=== PATIENT | male | born 1935 | race Caucasian/White ===

== ENCOUNTER → 2017-07-31 | Outpatient (CLI) | payer OTHER, MEDICAID | LOC: BHFA 11:00 | PROVIDERS: ATTEND Internal Medicine Cardiovascular Disease | DX: R06.02 Shortness of breath (principal); R60.9 Edema, unspecified; I48.91 Unspecified atrial fibrillation; I50.32 Chronic diastolic (congestive) heart failure ==

== ENCOUNTER 2017-08-05 09:46 | Day surgery (SDC) | payer OTHER, MEDICAID ==
[~2017-08-05 09:46] MED LIST: ATROPINE SULFATE 1 MG/10 ML SYR IVP ONE; NS 1,000 ML IV ONE
--- NOTE | 2017-08-05 10:09 | CPEKG ---
Heart Rate: 72 RR Interval: 833 QRSD Interval: 96 QT Interval: 420 QTC Interval: 460 QRS [place]: -50 T Wave [place]: 17 EKG Severity - ABNORMAL ECG - EKG Impression: ATRIAL FIBRILLATION EKG Impression: INFERIOR INFARCT, AGE INDETERMINATE EKG Impression: ANTERIOR INFARCT, OLD Electronically Signed By: Martha Grossman 06-Aug-2017 08:42:34
[2017-08-05] MEDS ORDERED: ATROPINE SULFATE 1 MG/10 ML SYR ONE (10:40)
--- NOTE | 2017-08-05 10:43 | PDANEPAE ---
ANE History of Present Illness A fib KAUR CV ANE Past Medical History - Cardiovascular History Hx Hypertension: Yes Hx Arrhythmias: Yes Hx Chest Pain: No - Pulmonary History Hx COPD: No Hx Asthma/Reactive Airway Disease: No Hx Recent Upper Respiratory Infection: No Hx Oxygen in Use at Home: No Hx Sleep Apnea: No ANE Review of Systems Review of Systems: - Exercise capacity METS (RN): 2 METS ANE Patient History - Allergies Allergies/Adverse Reactions: No Known Allergies Allergy (Verified 07/31/17 12:03) - Home Medications Home Medications: Albendazole 08/05/17 [Last Taken Unknown] Aspirin 08/05/17 [Last Taken Unknown] Atenolol 08/05/17 [Last Taken Unknown] Cozaar 08/05/17 [Last Taken Unknown] Eliquis 08/05/17 [Last Taken Unknown] Lantus Solostar 08/05/17 [Last Taken Unknown] Lovastatin 08/05/17 [Last Taken Unknown] Norvasc 10 mg (*) 08/05/17 [Last Taken Unknown] - NPO status NPO Status: no food or drink >8 hours - Anes Hx Anes Hx: no prior problems - Smoking Hx Smoking Status: Never smoked - Alcohol Use Alcohol Use: None - Family Anes Hx Family Anes Hx: none ANE Labs/Vital Signs - Labs Result Diagrams: 08/05/17 10:21 - Vital Signs Height: 174 cm Weight: 83 kg ANE Physical Exam - Airway Neck exam: decreased ROM Mallampati Score: Class 1 Mouth exam: normal dental/mouth exam - Pulmonary Pulmonary: no respiratory distress, no rales or rhonchi - Cardiovascular Cardiovascular: irregularly irregular ANE Anesthesia Plan Anesthesia Plan: GA with mask Total IV Anesthesia: Yes
[2017-08-05] MEDS ORDERED: PROPOFOL 200 MG/20 ML VIAL ONE (10:44)
[2017-08-05 10:45] LABS: INR 1.12 (0.83-1.16); PROTIME(PATIENT) 14.6 SEC (12.0-15.0)
--- NOTE | 2017-08-05 11:18 | PDHPUP ---
History & Physical Update H&P update statement: This history and physical update is based on an assessment of the patient which was completed after admission or registration (within 24 hours), but prior to the surgery/procedure. H&P update: H&P reviewed & patient examined, no change in patient's condition since H&P completed
[2017-08-05] MEDS ORDERED: APIXABAN 5 MG TAB ONE (11:21)
[2017-08-05] MEDS ORDERED: APIXABAN 5 MG TAB PO ONE (11:30)
--- NOTE | 2017-08-05 11:30 | PDTEE1 ---
KAUR Cardioversion Procedure Procedure: electrical cardioversion Indications: atrial fibrillation Consent: signed and in chart Anticoagulation: eliquis Procedural Details: Pads were placed in anterior-posterior position. KAUR probe was advanced and standard images obtained. There is no evidence of left atrial or left atrial appendage thrombus. Synchronized cardioversion attempt #1: 200J Results: normal sinus rhythm Conclusions: successful KAUR cardioversion
--- NOTE | 2017-08-05 11:56 | POSTANESTH ---
Post Anesthetic Evaluation Cardiovascular Status: Similar to Pre-Op Cond Respiratory Status: Similar to Pre-op Cond. Level of Consciousness/Mental Status: Can Participate in Eval Pain Control: Adequate, Prn Tx Ordered Nausea/Vomiting Control: Adequate, Prn Tx Ordered Complications Possibly Related to Anesthesia: None Noted (Awake SR)
--- NOTE | 2017-08-05 12:04 | CPEKG ---
Heart Rate: 60 RR Interval: 1000 P-R Interval: 232 QRSD Interval: 94 QT Interval: 464 QTC Interval: 464 P [place]: 24 QRS [place]: -51 T Wave [place]: 37 EKG Severity - ABNORMAL ECG - EKG Impression: SINUS RHYTHM EKG Impression: FIRST DEGREE AV BLOCK EKG Impression: INFERIOR INFARCT, AGE INDETERMINATE EKG Impression: ANTERIOR INFARCT, AGE INDETERMINATE EKG Impression: COMPARED WITH 08/05/2017 AT 10:07 A.M. SINUS RHYTHM HAS BEEN RESTORED Electronically Signed By: Martha Grossman 06-Aug-2017 08:42:29
--- NOTE | 2017-08-05 16:26 | ECHO ---
[email or web address] [address] [address] Main: [phone] Fax: Transesophageal Echocardiography Name: TRINITY SANTIAGO MR#: [id number] Study Date: 08/05/2017 Study Time: 11:01 AM Date of : 1935 Age: 81 year(s) Height: ( ) Weight: ( ) BSA: Gender: Male Examination: KAUR Indication: Pre Cardioversion Image Quality: Contrast: Requested by: Ricardo Villegas Heart Rate: Rhythm: Atrial fibrillation BP: / Procedure Staff Professional Athletes Coach: Rashid Melgar RDCS Reading Physician: Ricardo Villegas MD Requesting Provider: KAUR Exam Details Conclusions: The patient was in atrial fibrillation at the time the study. Normal left ventricular size and systolic function. LVEF estimated at 60-65%. Normal left ventricular wall motion. Moderate to severe left atrial enlargement. No evidence of left atrial appendage thrombus. Following the procedure the patient underwent cardioversion successfully restoring sinus rhythm. Measurements: Chambers Valvular Assessment AV/MV Valvular Assessment TV/PV Normal Normal Normal Name Value Range Name Value Range Name Value Range Additional Measurements: Findings: Left Ventricle: Normal global systolic LV function. Left Atrial Appendage: Good color flow doppler in the left atrial appendage. No thrombus in left appendage. Exam Comments: Proceeded with successful elective DC cardioversion.. l1n Patient: TRINITY SANTIAGO Study Date: 08/05/2017 Page 1 of 2 11:01 AM (No Signature Object) Patient: TRINITY SANTIAGO Study Date: 08/05/2017 Page 2 of 2 11:01 AM [id number]
== END 2017-08-05 14:00 | disposition home or self-care (01) ==
LOC: FCATH 09:46
PROVIDERS: ATTEND Internal Medicine Cardiovascular Disease
PROC: 5A2204Z Restoration of Cardiac Rhythm, Single (ICD-10-PCS; principal; 2017-08-05)
PROC: B245ZZ4 Ultrasonography of Left Heart, Transesophageal (ICD-10-PCS; principal; 2017-08-05)
DX: I48.91 Unspecified atrial fibrillation (principal); I50.32 Chronic diastolic (congestive) heart failure
CPT/HCPCS: J0461; J2704

== ENCOUNTER → 2017-08-20 | Outpatient (CLI) | payer OTHER, MEDICAID | LOC: BHFA 13:30 | PROVIDERS: ATTEND Internal Medicine Cardiovascular Disease | DX: I48.91 Unspecified atrial fibrillation (principal); R94.31 Abnormal electrocardiogram [ECG] [EKG]; I50.31 Acute diastolic (congestive) heart failure; R06.02 Shortness of breath; N18.9 Chronic kidney disease, unspecified ==

== ENCOUNTER → 2017-09-28 | Outpatient (CLI) | payer OTHER, MEDICAID | LOC: BHFA 13:30 | PROVIDERS: ATTEND Internal Medicine Cardiovascular Disease | DX: I48.91 Unspecified atrial fibrillation (principal); I50.9 Heart failure, unspecified | CPT/HCPCS: 78452; 93017; A9500; J2785 ==

== ENCOUNTER 2018-02-03 08:44 | Inpatient (IN) | payer OTHER, MEDICAID ==
[2018-02-03] MEDS ORDERED: DIAZEPAM 5 MG TAB PO ONE (08:47)
[2018-02-03] MEDS ORDERED: diphenhydrAMINE 25 MG CAP PO ONE (08:47)
[2018-02-03] MEDS ORDERED: ASPIRIN EC 325 MG TAB PO ONE (08:47)
[2018-02-03] MEDS ORDERED: NS 1,000 ML IV ONE (08:47)
[2018-02-03] MEDS ORDERED: FAMOTIDINE 20 MG TAB PO ONE (08:47)
[2018-02-03 09:30] LABS: PLATELET COUNT 185 10^3/uL (150-400)
[2018-02-03 09:38] LABS: INR 1.03 (0.83-1.16); PROTIME(PATIENT) 13.7 SEC (12.0-15.0)
--- NOTE | 2018-02-03 10:16 | PDPROPOC ---
Sedation Plan of Care Sedation Plan of Care: mental status noted, patient educated of risks, benefits , alternatives, patient can tolerate sedation ASA Classification: ASA 2 Planned drugs: fentanyl, midazolam Mallampati Score: Class 2 Mallampati Reference Image: Patient passed 3-3-2 rule?: Yes
--- NOTE | 2018-02-03 10:16 | PDHPUP ---
History & Physical Update H&P update statement: This history and physical update is based on an assessment of the patient which was completed after admission or registration (within 24 hours), but prior to the surgery/procedure.82 year old with abnormal nuclear stress test with large anterior septal defect and septal wall HK with EF of 47% with hx of PAF, HTN and DM. Now with episodes of substernal bandlike chest tightness at rest. Discussed with pt his underlying CRI with Cr between 2.6 -2.9 over the last year. Currently 2.8. Plan for IV Hydration with one liter prior to LHC and continuos IV Saline through chikis operative period. Will plan to limit contrast and No LV gram. Discussed potential for kidney damage with contrast. H&P update: H&P reviewed & patient examined, no change in patient's condition since H&P completed
[2018-02-03] MEDS ORDERED: MIDAZOLAM 2 MG/2 ML VIAL ONE (10:45)
[2018-02-03] MEDS ORDERED: LIDOCAINE 1% 300 MG/30 ML SDV ONE (10:45)
[2018-02-03] MEDS ORDERED: fentaNYL 100 MCG/2 ML INJ ONE (10:45)
[2018-02-03] MEDS ORDERED: IOPAMIDOL (ISOVUE-370) 150 ML BTL IV ONE (10:46)
[2018-02-03] MEDS ORDERED: ONDANSETRON 4 MG/2 ML VIAL IVP PRN (12:00)
[2018-02-03] MEDS ORDERED: OXYCODONE/APAP 5/325 TAB PO PRN (12:00)
[2018-02-03] MEDS ORDERED: ATROPINE SULFATE 1 MG/10 ML SYR IVP PRN (12:00)
[2018-02-03] MEDS ORDERED: HYDROCODONE/APAP 5/325 TAB PO PRN (12:00)
[2018-02-03] MEDS ORDERED: NITROGLYCERIN 0.4 MG BTL SL PRN (12:00)
[2018-02-03] MEDS ORDERED: NS 1,000 ML IV SCH ×3 (12:15→17:00)
--- NOTE | 2018-02-03 13:08 | CPIP ---
DATE OF PROCEDURE: 02/03/2018 PROCEDURE PERFORMED: Diagnostic left heart catheterization. INDICATION FOR PROCEDURE: Patient is an 82-year-old gentleman with multiple coronary artery disease risk factors, including hypertension, hyperlipidemia, and diabetes who had presented this summer with complaints of exertional shortness of breath. He underwent an exercise nuclear stress test demonstr ating a large area of anterior, anterior septal ischemia. He also has a known history of chronic oscar al insufficiency with creatinine over the last 12 months between 2.6 and 2.9. At his followup visit, he was asymptomatic. At that point, the decision was made to pursue optimal medical management. He had returned to my office last week with new onset of symptoms consistent with unstable angina with 4/10 bandlike substernal chest tightness lasting several minutes and resolving spontaneously. In the setting of symptoms of unstable angina, multiple risk factors, and abnormal nuclear stress sixto dy with anterior septal ischemia and anterior septal hypokinesis with EF of 47%, the decision was mad e to pursue diagnostic left heart catheterization. Of note, creatinine today was 2.8. He was hydrated with a L of fluid prior to the start of heart cat heterization. IV fluids were continuously flowing throughout the course of procedure. No left ventr iculogram was performed, attempts were made to minimize contrast. He received a total of 35 cc throu gh the course of the case. PROCEDURE: After informed consents were obtained for left heart catheterization, the patient was bro ught to the cardiac catheterization lab where he was prepped and draped in a sterile fashion. Using 1% lidocaine, the right groin was anesthetized. Using the modified Seldinger technique, 6-Vietnamese cat heter was placed into the right common femoral artery without complications. A JL4 catheter was used to take images of the left coronary anatomy in multiple projections. JL4 catheter was exchanged ove r a guidewire for a JR4 catheter. JR4 catheter was used to take images of the right coronary artery. JR4 catheter was removed over guidewire without complications. No left ventriculogram or right com mon femoral artery angiography were obtained to limit contrast exposure. FINDINGS: 1. Left main normal size and caliber, bifurcates into left anterior descending and left circumflex c oronary artery. There is no evidence of coronary disease within the left main. 2. Left anterior descending: LAD is occluded at the level of the first diagonal branch. There is a small 1st diagonal branch with moderate diffuse disease and a large 1st septal branch with mild diff use disease. There is evidence of left to right and right to left collaterals primarily from the obt use marginal branch of the circumflex. 3. The circumflex vessel gives rise to a moderate to large size first and second obtuse marginal bra nches. There is 90% proximal stenosis in the first obtuse marginal branch, an 80% to 90% proximal st enosis in the second obtuse marginal branch. There is a proximal 70% stenosis in the mid circumflex vessel with mild luminal irregularities to the distal circumflex vessel. 4. The right coronary artery is a large caliber dominant vessel that bifurcates into PDA and PLV bra nch. There is evidence of ostial stenosis of the RCA. There is also 80% to 90% proximal stenosis, a nd an 80% mid napkin ring stenosis identified. CONCLUSION: 1. Severe 3-vessel coronary artery disease. 2. New onset of symptoms consistent with unstable angina despite well controlled blood pressure and lipids. 3. Chronic renal insufficiency with baseline creatinine between 2.6 and 2.9. 4. Diabetes. PLAN: I reviewed images with my interventional colleague, Dr. Braden. I feel that patient would be best served in the setting of multiple risk factors, including diabetes in the setting of 3-vessel co ronary disease with coronary artery bypass graft surgery. No attempted intervention was made today. A 6-Vietnamese sheath with was pulled without complications. At the time of this dictation, manual hemo stasis is being applied without complication. /[id number]/MODL
--- NOTE | 2018-02-03 16:37 | CPEKG ---
Test Reason : OPEN Blood Pressure : / mmHG Vent. Rate : 065 BPM Atrial Rate : 065 BPM P-R Int : 194 ms QRS Dur : 104 ms QT Int : 445 ms P-R-T Axes : 046 -54 022 degrees QTc Int : 463 ms Sinus rhythm Inferior infarct, old Anterior infarct, old Confirmed by Gino Chou ([id number]) on 02/03/2018 4:37:31 PM Referred By: Confirmed By:Gino Chou
[2018-02-03] MEDS ORDERED: LORazepam 2 MG/ML INJ IVP PRN (16:38)
[2018-02-03] MEDS ORDERED: ATORVASTATIN CALCIUM 40 MG TAB PO SCH ×2 (17:00→21:00)
[2018-02-03] MEDS ORDERED: amLODIPine BESYLATE 5 MG TAB ONE (17:07)
[2018-02-03] MEDS ORDERED: DICLOFENAC SODIUM 1% 100 GM GEL TP PRN (17:22)
[2018-02-03] MEDS: FUROSEMIDE 40 MG TAB PO SCH (18:31)
[2018-02-03] MEDS: LISINOPRIL 10 MG TAB PO SCH (18:32)
[2018-02-03] MEDS: METOPROLOL TARTRATE 100 MG TAB PO SCH (20:45)
[2018-02-03] MEDS: SENNOSIDES/DOCUSATE SODIUM TAB PO SCH (20:45)
[2018-02-03] MEDS ORDERED: TAMSULOSIN HCL 0.4 MG CAP PO SCH (21:00)
[2018-02-03] MEDS ORDERED: METOPROLOL TARTRATE 100 MG TAB PO SCH (21:00)
[2018-02-03] MEDS ORDERED: CHLORHEXIDINE GLUC HIBICLENS 118 ML BTL TP SCH (21:00)
[2018-02-03] MEDS: MUPIROCIN 2% 22 GM OINT NS SCH (23:59)
[2018-02-04 04:47] LABS: PLATELET COUNT 164 10^3/uL (150-400)
--- NOTE | 2018-02-04 04:58 | GCON ---
DATE OF CONSULTATION: 02/03/2018 REFERRING PHYSICIAN: Dr. Marshall The patient is seen at the request of Dr. Marshall with the patient's permission. IMPRESSION: 1. Unstable angina pectoris with severe 3-vessel coronary artery disease. 2. Chronic renal failure with baseline creatinine of 2.8. 3. Type 2 diabetes, on insulin. 4. Hypertension. 5. Class I congestive heart failure, diastolic. RECOMMENDATIONS: This gentleman should remain in-house and undergo coronary artery revascularization due to his unstable coronary status. Given his baseline creatinine, he did have a limited catheteri zation today with 35 cc of dye. We will check a baseline creatinine in the morning, and if stable, w e will proceed as 2nd case tomorrow. Because he is paroxysmal in atrial fibrillation, we would vlad lly do a Chen-Maze IV; however, given his renal status, I want to avoid a longer pump run and will min imize it to just a PVI and left atrial appendage management. Risks and complications including renal failure, bleeding, infection, and were reviewed with the patient, his [id number], and his son by phone. The patient is agreeable and wishes to proceed. CHIEF COMPLAINT: This 82-year-old gentleman had been evaluated for worsening dyspnea with outpatient nuclear studies which revealed significant anterior wall ischemia. On revisit, he was complaining o f crescendo angina awakening him at night and coming on without provocation. He underwent diagnostic left heart cath today, showed severe 3-vessel disease. MEDICAL HISTORY: As stated. MEDICATIONS: He was on amlodipine, atorvastatin, Eliquis which has been held 3 days prior to cath, L antus, Lasix, lisinopril, and metoprolol. ALLERGIES: Denied. SOCIAL HISTORY: Never drank. Never smoked. He is retired, lives with his and is fully indepen dent. REVIEW OF SYSTEMS: Except for Chief Complaint, unremarkable. PHYSICAL EXAMINATION: GENERAL: This is an elderly gentleman, lying supine in bed, in no apparent di stress. VITAL SIGNS: Blood pressure is 156/92, pulse 85, respirations 14, nonlabored. HEENT: Norm ocephalic. PERRLA. EOMI. NECK: Without bruit, adenopathy, or thyromegaly. HEART: Rate is regula r without murmur, S3, or S4. LUNGS: Clear. ABDOMEN: Soft, nontender. Bowel sounds are active. R ECTAL AND GENITAL: Deferred. NEUROLOGICAL: Grossly intact. /[id number]/MODL
[2018-02-04] MEDS ORDERED: MANNITOL 25% 12.5 GM/50 ML VIAL IVP ONE (08:00)
[2018-02-04] MEDS ORDERED: CITRATE DEXTROSE SOLN 500 ML BAG MISC ONE (08:00)
[2018-02-04] MEDS ORDERED: INSULIN REGULAR HUMAN 100 UNIT in NS 100 ML IV ONE (08:00)
[2018-02-04] MEDS ORDERED: PHENYLEPHRINE HCL 50 MG in NS 250 ML IV ONE (08:00)
[2018-02-04] MEDS ORDERED: NOREPINEPHRINE BITARTRATE 16 MG in NS 250 ML IV ONE (08:00)
[2018-02-04] MEDS ORDERED: VERAPAMIL 5 MG, NITROGLYCERIN 2.5 MG, HEPARIN 500 UNIT, SODIUM BICARBONATE 0.2 MEQ in L... MISC ONE (08:00)
[2018-02-04] MEDS ORDERED: AMINOCAPROIC ACID 5 GM/20 ML VIAL IV ONE (08:00)
[2018-02-04] MEDS ORDERED: ceFAZolin 2 GM/DEXTROSE 100 ML IV ONE (08:00)
[2018-02-04] MEDS ORDERED: CARDIOPLEGIC SOLUTION 1,052.8 ML PF ONE (08:00)
[2018-02-04] MEDS: MUPIROCIN 2% 22 GM OINT NS SCH ×2 (08:20→21:29)
[2018-02-04] MEDS ORDERED: D50W 25 GM/50 ML SYR IVP PRN (08:44)
--- NOTE | 2018-02-04 08:49 | PDHOSCONS ---
History and Physical - Chief Complaint management of diabetes - History of Present Illness 82yo M with a history of type 2 diabetes, HTN, HLD, CKD (baseline Cr 2.6-2.9), atrial fibrillation on AC who came in for coronary angiography after developing unstable angina. Had symptoms consistent with stable angina over the summer. Stress test at that time abnormal for large area or reversible ischemia but decided to manage medically. Then developed symptoms consistent with unstable angina prompting the catheterization which showed severe 3 vessel disease. Given his diabetic history, decision was made to pursue coronary bypass surgery. The medicine team has been consulted for chikis-operative management of his diabetes. I saw the patient in the post-operative period. He is still sedated and on the ventilator and unable to provide any additional history re: his diabetes. History Information - Allergies/Home Medication List Allergies/Adverse Reactions: No Known Allergies Allergy (Verified 07/31/17 12:03) Home Medications: Apixaban [Eliquis] 2.5 mg PO BID 01/28/18 [Last Taken 01/31/18 22:00] Atorvastatin Calcium [Lipitor 40 mg (*)] 40 mg PO HS 01/28/18 [Last Taken 18:00] Furosemide [Lasix 20 MG (*)] 60 mg PO DAILY 01/28/18 [Last Taken 01/31/18 12:00] Insulin Glargine [Lantus] 15 unit SC DAILY 01/28/18 [Last Taken 02/02/18 10:00] Lisinopril [Zestril 10 mg (*)] 10 mg PO DAILY 01/28/18 [Last Taken 02/02/18 18: 00] Metoprolol Tartrate [Lopressor 100 mg (*)] 100 mg PO BID 01/28/18 [Last Taken 18:00] amLODIPine BESYLATE [Norvasc 10 mg (*)] 10 mg PO DAILY 01/28/18 [Last Taken 06/17 18:00] Tamsulosin HCl [Flomax 0.4 MG (*)] 0.4 mg PO DAILY 01/29/18 [Last Taken 18:00] Diclofenac Sodium 1% [Voltaren Gel (*)] 2 gm TP QID PRN 02/03/18 [Last Taken 06/17 11:00] I have personally reviewed and updated: family history, medical history, social history, surgical history - Past Medical History Additional medical history: Type 2 diabetes, HTN, HLD, CKD stage 3-4, atrial fibrillation, chronic diastolic CHF, 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 (tx'd with albendazole in 2012) - Surgical History Reports: no pertinent surgical hx Additional surgical history: no prior sternotomy - Family History Positive for: non-pertinent Additional family history: no known CAD - Social History Smoking Status: Never smoked Alcohol Use: None Drug Use: None Additional social history: Retired, lives with , fully independent Review of Systems Review of Systems: ROS: 10pt was reviewed & negative except for what was stated in HPI & below Physical Exam Physical Exam: Temp Pulse Resp BP Pulse Ox 36.7 C 68 16 158/80 H 94 02/04/18 08:00 02/04/18 08:00 02/04/18 08:00 02/04/18 08:00 02/04/18 08:00 Constitutional: appears nourished, other (sedated ) Eyes: anicteric sclera, other (pinpoint pupils) Ears, Nose, Mouth, Throat: other (ET tube in place) Cardiovascular: regular rate and rhythym, no murmur, rub, or gallop, other ( sternal incision c/d/i), No edema Respiratory: other (mechanical breath sounds, clear) Gastrointestinal: normoactive bowel sounds, soft, non-tender abdomen, no palpable masses Genitourinary: garner in urethra Skin: warm, normal color, no rashes or abrasions, no fluctuance, no induration, No mottled Musculoskeletal: full muscle strength, no muscle tenderness, normal joint ROM, no joint effusions Neurologic: other (sedated) Lab Data & Imaging Review 02/04/18 03:38 02/04/18 03:38 WBC 10.67 10^3/uL (3.80-9.50) H 02/04/18 03:38 RBC 4.38 10^6/uL (4.40-6.38) L 02/04/18 03:38 Hgb 12.5 g/dL (13.7-17.5) L 02/04/18 03:38 Hct 37.8 % (40.0-51.0) L 02/04/18 03:38 MCV 86.3 fL (81.5-99.8) 02/04/18 03:38 MCH 28.5 pg (27.9-34.1) 02/04/18 03:38 MCHC 33.1 g/dL (32.4-36.7) 02/04/18 03:38 RDW 12.9 % (11.5-15.2) 02/04/18 03:38 Plt Count 164 10^3/uL (150-400) 02/04/18 03:38 MPV 11.1 fL (8.7-11.7) 02/04/18 03:38 Neut % (Auto) 73.3 % (39.3-74.2) 02/04/18 03:38 Lymph % (Auto) 12.6 % (15.0-45.0) L 02/04/18 03:38 [place] % (Auto) 8.6 % (4.5-13.0) 02/04/18 03:38 Eos % (Auto) 4.4 % (0.6-7.6) 02/04/18 03:38 Baso % (Auto) 0.7 % (0.3-1.7) 02/04/18 03:38 Nucleat RBC Rel Count 0.0 % (0.0-0.2) 02/04/18 03:38 Absolute Neuts (auto) 7.83 10^3/uL (1.70-6.50) H 02/04/18 03:38 Absolute Lymphs (auto) 1.34 10^3/uL (1.00-3.00) 02/04/18 03:38 Absolute Monos (auto) 0.92 10^3/uL (0.30-0.80) H 02/04/18 03:38 Absolute Eos (auto) 0.47 10^3/uL (0.03-0.40) H 02/04/18 03:38 Absolute Basos (auto) 0.07 10^3/uL (0.02-0.10) 02/04/18 03:38 Absolute Nucleated RBC 0.00 10^3/uL (0-0.01) 02/04/18 03:38 Immature Gran % 0.4 % (0.0-1.1) 02/04/18 03:38 Immature Gran # 0.04 10^3/uL (0.00-0.10) 02/04/18 03:38 PT 13.7 SEC (12.0-15.0) 02/03/18 09:15 INR 1.03 (0.83-1.16) 02/03/18 09:15 Sodium 140 mEq/L (135-145) 02/04/18 03:38 Potassium 4.2 mEq/L (3.5-5.2) 02/04/18 03:38 Chloride 111 mEq/L (97-110) H 02/04/18 03:38 Carbon Dioxide 21 mEq/l (22-31) L 02/04/18 03:38 Anion Gap 8 mEq/L (6-14) 02/04/18 03:38 BUN 46 mg/dL (7-23) H 02/04/18 03:38 Creatinine 2.7 mg/dL (0.7-1.3) H 02/04/18 03:38 Estimated GFR 23 02/04/18 03:38 Glucose 89 mg/dL (70-100) 02/04/18 03:38 POC Glucose 90 mg/dL (70-100) 02/03/18 21:41 Calcium 8.1 mg/dL (8.5-10.4) L 02/04/18 03:38 Magnesium 2.2 mg/dL (1.6-2.3) 02/04/18 03:38 Total Bilirubin 0.4 mg/dL (0.1-1.4) 02/04/18 03:38 AST 16 IU/L (17-59) L 02/04/18 03:38 ALT 19 IU/L (21-72) L 02/04/18 03:38 Alkaline Phosphatase 63 IU/L (38-126) 02/04/18 03:38 NT-Pro-B Natriuret Pep 2160 pg/mL (0-450) H 02/04/18 03:38 Total Protein 6.1 g/dL (6.3-8.2) L 02/04/18 03:38 Albumin 3.1 g/dL (3.5-5.0) L 02/04/18 03:38 Triglycerides 116 mg/dL (40-150) 02/03/18 09:15 Cholesterol 142 mg/dL (140-220) 02/03/18 09:15 Cholesterol Risk Factr 0.5 (0.2-1.0) 02/03/18 09:15 LDL Cholesterol, Calc 72 mg/dL (80-100) L 02/03/18 09:15 LDL Risk Factor 0.6 (0.2-1.0) 02/03/18 09:15 VLDL Cholesterol 23 mg/dL (8-25) 02/03/18 09:15 Non-HDL Cholesterol 95 mg/dL (90-129) 02/03/18 09:15 HDL Cholesterol 47 mg/dL (40-65) 02/03/18 09:15 LDL/HDL Ratio 1.53 RATIO (1.00-3.64) 02/03/18 09:15 Cholesterol/HDL Ratio 3.02 RATIO (1.00-4.97) 02/03/18 09:15 Patient ABO/Rh AB POSITIVE 02/03/18 18:40 Antibody Screen NEGATIVE 02/03/18 18:40 Assessment & Plan Assessment: 82yo M with a history of type 2 diabetes, HTN, HLD, CKD (baseline Cr 2.6-2.9), atrial fibrillation on AC who was found to have severe 3 vessel coronary disease after developing unstable angina. Plan is for coronary bypass surgery. Medicine has been consulted for management of diabetes. Plan: 1. Type 2 diabetes: Pre-operative fasting glucose this AM is at goal. - A1c 6.2% indicating good control as outpt - Post-CABG hyperglycemia management with insulin gtt for 24 hours - Starting tomorrow would resume lantus 15u daily and add standard sliding scale with ACHS glucose checks - Will follow and titrate insulin accordingly - Goal blood sugar 110-180 in chikis-operative period 2. CKD stage 3-4 - No metformin 3. Coronary artery disease - s/p CABG today with Dr Jarrett 4. Atrial fibrillation - Holding eliquis in chikis-operative period Thank you for this consult, we will continue to follow along.
[2018-02-04] MEDS ORDERED: INSULIN GLARGINE 100 UNITS/ML UNIT SC SCH (09:00)
[2018-02-04] MEDS ORDERED: MINERAL OIL 10 ML VIAL ONE ×2 (09:25→10:23)
[2018-02-04] MEDS ORDERED: VERAPAMIL 5 MG/2 ML VIAL ONE ×2 (09:25→10:24)
[2018-02-04] MEDS ORDERED: PAPAVERINE HCL 60 MG/2 ML SDV ONE ×2 (09:25→10:24)
[2018-02-04] MEDS ORDERED: PROTAMINE SULFATE 50 MG/5 ML VIAL IVP ONE (10:18)
[2018-02-04] MEDS ORDERED: SODIUM BICARBONATE 50 MEQ/50 ML SYR ONE (10:18)
[2018-02-04] MEDS ORDERED: CALCIUM CHLORIDE 1 GM/10 ML INJ ONE (10:19)
[2018-02-04] MEDS ORDERED: ALBUMIN 5% 250 ML BOTTLE IV ONE ×2 (10:19→12:36)
[2018-02-04] MEDS ORDERED: MILRINONE/DEXTROSE/100 ML BAG IV ONE (10:19)
--- NOTE | 2018-02-04 10:19 | PDMN ---
Medical Necessity Medical necessity: Pt meets IP criteria as of 02/03/2018 per MD and MCG M-40 ( Angina); est los > 2 mn for ongoing tx and management of unstable angina with dyspnea; L heart catheterization revealed severe 3 vessel artery disease, plan for coronary bypass surgery. Cormorbid advanced age, CKD, CAD, DM II and afib.
[2018-02-04] MEDS ORDERED: NA BICARBONATE 50 MEQ/50 ML VIAL ONE (10:20)
[2018-02-04] MEDS ORDERED: LIDOCAINE 2% 100 MG/5 ML SYR ONE (10:20)
[2018-02-04] MEDS ORDERED: HEPARIN 10,000 UNIT/10 ML MDV (1,000 UNIT/ML) ONE (10:20)
[2018-02-04] MEDS ORDERED: AMIODARONE HCL 150 MG/3 ML VIAL ONE (10:21)
[2018-02-04] MEDS ORDERED: MAGNESIUM SULFATE 1 GM/2 ML VIAL ONE (10:21)
[2018-02-04] MEDS ORDERED: niCARdipine/NACL/200 ML BAG IV ONE (10:21)
[2018-02-04] MEDS ORDERED: CITRATE DEXTROSE SOLN 500 ML BAG ONE (10:21)
[2018-02-04] MEDS ORDERED: ADENOSINE 6 MG/2 ML VIAL ONE (10:21)
[2018-02-04] MEDS ORDERED: DOPamine/DEXTROSE 400 MG/250 ML BAG IV ONE (10:21)
[2018-02-04] MEDS ORDERED: methylPREDNISolone SOD SUCC 1 GM/8 ML VIAL ONE (10:22)
[2018-02-04] MEDS ORDERED: ceFAZolin 1 GM VIAL ONE (10:22)
[2018-02-04] MEDS ORDERED: NITROGLYCERIN/D5W 50 MG/250 ML BOTTLE IV ONE (10:22)
[2018-02-04] MEDS ORDERED: ISOFLURANE 100 ML BOTTLE IH ONE (10:23)
[2018-02-04] MEDS ORDERED: MIDAZOLAM 2 MG/2 ML VIAL IVP ONE (10:47)
--- NOTE | 2018-02-04 10:47 | PDANEPAE ---
ANE History of Present Illness 82 YO For cabg ANE Past Medical History - Cardiovascular History Hx Hypertension: Yes Hx Arrhythmias: Yes Hx Chest Pain: Yes Hx Coronary Artery / Peripheral Vascular Disease: Yes - Pulmonary History Hx COPD: No Hx Asthma/Reactive Airway Disease: No Hx Recent Upper Respiratory Infection: No Hx Oxygen in Use at Home: No Hx Sleep Apnea: No Sleep Apnea Screening Result - Last Documented: Positive - Endocrine History Hx Diabetes: Yes - Renal History Hx Renal Disorders: Yes Renal History Comment: CRI ANE Review of Systems Review of Systems: - Exercise capacity METS (RN): 3 METS ANE Patient History - Allergies Allergies/Adverse Reactions: No Known Allergies Allergy (Verified 07/31/17 12:03) - Home Medications Home medications: home medication list seen and reviewed Home Medications: Apixaban [Eliquis] 2.5 mg PO BID 01/28/18 [Last Taken 01/31/18 22:00] Atorvastatin Calcium [Lipitor 40 mg (*)] 40 mg PO HS 01/28/18 [Last Taken 18:00] Furosemide [Lasix 20 MG (*)] 60 mg PO DAILY 01/28/18 [Last Taken 01/31/18 12:00] Insulin Glargine [Lantus] 15 unit SC DAILY 01/28/18 [Last Taken 02/02/18 10:00] Lisinopril [Zestril 10 mg (*)] 10 mg PO DAILY 01/28/18 [Last Taken 02/02/18 18: 00] Metoprolol Tartrate [Lopressor 100 mg (*)] 100 mg PO BID 01/28/18 [Last Taken 18:00] amLODIPine BESYLATE [Norvasc 10 mg (*)] 10 mg PO DAILY 01/28/18 [Last Taken 06/17 18:00] Tamsulosin HCl [Flomax 0.4 MG (*)] 0.4 mg PO DAILY 01/29/18 [Last Taken 18:00] Diclofenac Sodium 1% [Voltaren Gel (*)] 2 gm TP QID PRN 02/03/18 [Last Taken 06/17 11:00] - NPO status NPO Status: no food or drink >8 hours NPO Since - Liquids (Date): 02/04/18 NPO Since - Liquids (Time): 00:00 NPO Since - Solids (Date): 02/04/18 NPO Since - Solids (Time): 00:00 - Smoking Hx Smoking Status: Never smoked - Alcohol Use Alcohol Use: None ANE Labs/Vital Signs - Labs Result Diagrams: 02/04/18 03:38 02/04/18 03:38 - Vital Signs Blood Pressure: 161/74 Heart Rate: 70 Respiratory Rate: 16 O2 Sat (%): 94 Height: 5 ft 8.9 in Weight: 82.7 kg ANE Physical Exam - Airway Neck exam: FROM Mallampati Score: Class 2 Mouth exam: normal dental/mouth exam - Pulmonary Pulmonary: no respiratory distress - Cardiovascular Cardiovascular: regular rate and rhythym - ASA Status ASA Status: IV ANE Anesthesia Plan Anesthesia Plan: general endotracheal anesthesia Lines/Monitors: arterial line, central line, KAUR
[2018-02-04] MEDS ORDERED: fentaNYL 100 MCG/2 ML INJ ONE (10:49)
[2018-02-04] MEDS ORDERED: REMIFENTANIL HCL 1 MG VIAL ONE (10:49)
[2018-02-04] MEDS ORDERED: PROPOFOL/EMULSION 500 MG/50 ML BOTTLE IV ONE (10:49)
[2018-02-04] MEDS ORDERED: DEXMEDETOMIDINE HCL 400 MCG in NS 100 ML IV SCH (11:00)
--- NOTE | 2018-02-04 11:07 | PDHPUP ---
History & Physical Update H&P update statement: This history and physical update is based on an assessment of the patient which was completed after admission or registration (within 24 hours), but prior to the surgery/procedure. No changes H&P update: no change in patient's condition since H&P completed
[2018-02-04] MEDS ORDERED: INSULIN LISPRO 100 UNIT/ML SC SCH (12:00)
[2018-02-04] MEDS ORDERED: PHENYLEPHRINE HCL 100 MCG/ML SYR ONE (14:59)
[2018-02-04] MEDS ORDERED: ONDANSETRON 4 MG/2 ML VIAL ONE (14:59)
[2018-02-04] MEDS ORDERED: ePHEDrine SULFATE 25 MG/5 ML SYR ONE (14:59)
[2018-02-04] MEDS ORDERED: NEOSTIGMINE METHYLSULFATE 5 MG/5 ML SYR ONE (14:59)
--- NOTE | 2018-02-04 15:05 | ASMTCMCOM ---
CM Note CM Note Notes: Pt is a 82 y/o man admitted for a coronary artery revascularization due to unstable coronary status. Dr. Jarrett will take pt to open open at some point. Needs are TBD at this time. CM to follow. Plan: TBD Date Signed: 02/04/2018 03:05 PM Electronically Signed By:JOHN Sellers
[2018-02-04] MEDS ORDERED: ONDANSETRON DISINTEGRATING 4 MG TAB PO PRN (15:24)
[2018-02-04] MEDS ORDERED: MEPERIDINE 25 MG/0.5 ML AMP IVP PRN (15:24)
[2018-02-04] MEDS ORDERED: fentaNYL 100 MCG/2 ML INJ IVP PRN (15:24)
[2018-02-04] MEDS ORDERED: SODIUM CL NASAL 45 ML BTL EACHNARE PRN (15:24)
[2018-02-04] MEDS ORDERED: BISACODYL 10 MG SUPP PR PRN (15:24)
[2018-02-04] MEDS ORDERED: LACTULOSE 20 GM/30 ML UDCUP PO PRN (15:24)
[2018-02-04] MEDS ORDERED: CEPACOL LOZENGE PO PRN (15:24)
[2018-02-04] MEDS ORDERED: METOCLOPRAMIDE 10 MG/2 ML VIAL IVP PRN (15:24)
[2018-02-04] MEDS ORDERED: PANTOPRAZOLE SODIUM 40 MG VIAL IVP ONE ×2 (15:24→18:15)
[2018-02-04] MEDS ORDERED: ONDANSETRON 4 MG/2 ML VIAL IVP PRN (15:24)
[2018-02-04] MEDS ORDERED: ACETAMINOPHEN 650 MG SUPP PR PRN (15:24)
[2018-02-04] MEDS ORDERED: NS 1,000 ML IV SCH (15:30)
[2018-02-04] MEDS ORDERED: INSULIN REGULAR HUMAN 100 UNIT in NS 100 ML IV SCH (15:30)
[2018-02-04] MEDS: ALBUMIN 5% 250 ML IV PRN ×2 (16:06→22:18)
[2018-02-04] MEDS: NS 1,000 ML IV SCH (16:41)
[2018-02-04] MEDS: METOPROLOL TARTRATE 100 MG TAB PO SCH (16:44)
[2018-02-04] MEDS: LISINOPRIL 10 MG TAB PO SCH (16:49)
[2018-02-04] MEDS: FUROSEMIDE 40 MG TAB PO SCH (16:49)
[2018-02-04] MEDS: SENNOSIDES/DOCUSATE SODIUM TAB PO SCH ×2 (16:50→21:31)
[2018-02-04] MEDS ORDERED: ALBUMIN 5% 500 ML IV ONE (17:00)
--- NOTE | 2018-02-04 18:27 | PDCONSULT ---
Museum Tour Guide Note: ASSESSMENT 82-year-old male with severe 3 vessel disease status post CABG, pulmonary vein isolation and left atrial appendage occlusion postoperative day 1 # severe 3 vessel coronary disease # atrial fibrillation # hypertension # hyperlipidemia # diastolic heart failure # obesity # postop respiratory failure, expected # encephalopathy, postoperative, expected # CKD stage 3 PLAN # monitor hemodynamics and drain output # aggressive pulmonary toilet next # supplemental oxygen wean as able # advance diet when tolerating po # hydration for AK and CKD # avoid nephrotoxins including Toradol # advise outpatient home sleep study given clinical diagnosis of GABRIEL # if patient develops desaturations overnight given body habitus and concerns for GABRIEL consider empiric trial of CPAP # Analgesia APAP, fentanyl # Sedation propofol # Thromboprophylaxis - SQ hep # Head of bed elevated # Ulcer prophylaxis - H2 libra # Glucose SSI # Skin no skin breakdown # Delirium - delirium precautions Laboratory Reviewed significant for an elevated serum creatinine no significant thrombocytopenia and preserved hemoglobin IMAGING I personally reviewed interpreted radiographic images well as formal radiology reads 02/04/2018 immediate postoperative chest x-ray with ET tube, CVC catheter and mediastinal drains in appropriate place. No large pneumothorax. Postoperative parenchymal abnormalities expected Consult As asked by Dr. Jarrett of cardiothoracic surgery to evaluate this patient for postoperative ICU care Insert assessment Chief complaint shortness of breath HPI patient is a 82-year-old male with longstanding hypertension hyperlipidemia paroxysmal AFib with episodic chest discomfort described as bandlike lasting up to 4 min without radiation. Unclear of exacerbating or alleviating factors. Intermittently able to perform exercise and walking. Underwent nuclear stress test 09/28/2017 with a large size [id number] reversible defect. A subsequent the underwent coronary angiography 02/03/2018 and was found to have have disease in his LAD, circumflex and RCA. He underwent CABG, pulmonary vein isolation and left atrial appendage occlusion. Time of interview he is encephalopathic and unable to provide review of systems are more meaningful history Allergies no known allergies allergies Past medical history atrial fibrillation, diastolic heart failure, shortness of breath, coronary disease, CKD, history of [place] a coccal disease. Medications Amlodipine, atorvastatin, Eliquis, Lantus, Lasix, lisinopril, metoprolol Family history No history of coronary disease Social history denies smoking Review of systems Unable to be obtained due to patient's mental status Physical exam Afebrile, pulse 60, both her sugar 120/61 map 82 respiratory 15 92% 3 L nasal cannula GEN: Somnolent, resting in bed NEURO: Somnolent, no gross focal deficit unable to assess cranial nerves HEENT: PERRL, EOMI, MMM, OP clear, carotid oropharynx NECK: supple, trachea midline CHEST normal shape, no pes excavatum, surgical sedation site clean dry and intact, mediastinal drains in place CVS: Holosystolic rub appreciated, no murmurs regular rate PULM: CTA B, no wheezes/rales/rhonchi ABD: soft, NT, ND, NABS EXT: no swelling, no cyanosis, full ROM SKIN: warm, dry, intact, no rash PSYCH somnolent
[2018-02-04] MEDS ORDERED: FUROSEMIDE 40 MG/4 ML VIAL IVP ONE (20:30)
[2018-02-04] MEDS ORDERED: ceFAZolin 2 GM/DEXTROSE 100 ML IV SCH (21:00)
[2018-02-04] MEDS: CHLORHEXIDINE GLUCONATE 15 ML UDL PO SCH (21:29)
[2018-02-05] MEDS: ACETAMINOPHEN 325 MG TAB PO PRN (03:42)
[2018-02-05 04:34] LABS: PLATELET COUNT 82 10^3/uL (150-400)
[2018-02-05] MEDS: HEPARIN 5,000 UNIT/0.5 ML INJ SC SCH ×3 (04:41→23:00)
--- NOTE | 2018-02-05 05:49 | GOP ---
DATE OF OPERATION: 02/04/2018 SURGEON: Reyes Jarrett DO MAMMA LOGIST: TYLOR Gamino. ANESTHESIOLOGIST: Diego Hopkins MD. PREOPERATIVE DIAGNOSIS: Arteriosclerotic heart disease with unstable angina pectoris. POSTOPERATIVE DIAGNOSIS: Arteriosclerotic heart disease with unstable angina pectoris. PROCEDURE PERFORMED: 1. Coronary bypass grafting x4 with the left internal mammary artery to the left anterior descending , saphenous vein graft to the first obtuse marginal and third obtuse marginal, and saphenous vein gra ft to the posterior descending artery. 2. Pulmonary vein ablation and left atrial appendage management with AtriClip. 3. Endoscopic vein harvest. FINDINGS: DESCRIPTION OF PROCEDURE: The patient was brought to the operating room, intubated. Monitoring line s were placed. He was prepped and draped in sterile classical manner. Time-out was performed. Ster notomy was performed. Patient's mammary was harvested. It was an excellent 2.8 mm vessel with good flow. The vein was harvested. It was on the smaller side from both thighs, measuring 3 mm. The pat ient was heparinized, cannulated. Bypass was begun, and cardioplegic arrest was obtained with antegr padmini cardioplegia, retrograde cardioplegia, topical hypothermia, and systemic cooling. All distals an d proximals were performed with a cross-clamp on. We also performed bilateral pulmonary vein ablatio n with 3 overlapping ablation lines with the last of each line being 5 seconds or less. We then plac ed a 35 mm clip across the base of the left atrial appendage. The cross-clamp was then removed with suction on the ascending aortic vent. Spontaneous cardiac activity was noted to resume. The patient was rewarmed and weaned from bypass. Heparin was reversed with protamine. The cannula was removed and oversewn. Two ventricular pacing wires. One left pleural and 1 mediastinal drain were placed. The thymic fat and pericardium were closed. Chest was closed in standard fashion. Patient returned to ICU in stable condition. /[id number]/MODL
--- NOTE | 2018-02-05 06:20 | SOAPPROG ---
SOAP Progress Note Assessment/Plan: POD #1: Urgent CABGx3 (RAINES-LAD, SVG-OM1, SVG-OM3, SVG-PDA), BL PVI ablation, AtriCLip exclusion of DAKOTA, EVH BL thighs CAD/unstable angina s/p CABGx4 - BB, ASA, statin for secondary prevention when appropriate - CTS to bulb suction, pacing wires wrapped and capped, FC out Paroxysmal atrial fibrillation s/p BL PVI ablation and exclusion of DAKOTA - Post-op sinus bradycardia with adequate BP - Will resume Eliquis when appropriate CKD with baseline with pre-op Cr 2.4 - Adequate UOP without metabolic derangements - Continue supportive care Ischemic cardiomyopathy with pre-op EF of 47% - Continue dopamine and wean as tolerated - Diuretics/BB when appropriate DM, on Lantus, with A1C of 6.2% - Insulin gtt to ISS - Hospitalist to manage further Acute blood loss anemia - 2U PRBC this AM, monitor Subjective: Denies pain/SOB Objective: Vital Signs Temp Pulse Resp BP Pulse Ox 36.6 C 54 L 12 109/48 L 100 02/05/18 04:00 02/05/18 06:00 02/05/18 06:00 02/05/18 06:00 02/05/18 06:00 Laboratory Results 02/05/18 04:10 02/05/18 04:10 02/04/18 02/05/18 02/06/18 05:59 05:59 05:59 Intake Total 720 1632.9 Output Total 2523 Balance 720 -890.1 PT 13.7 SEC (12.0-15.0) 02/03/18 09:15 INR 1.03 (0.83-1.16) 02/03/18 09:15 Physical Exam - Physical Exam General Appearance: WD/WN, alert, no apparent distress EENT: No scleral icterus (R), No scleral icterus (L) Neck: normal inspection Respiratory: No respiratory distress Cardiac/Chest: bradycardia Abdomen: non-tender, soft, No distended Skin: normal color, warm/dry Extremities: No pedal edema Neuro/Psych: no motor/sensory deficits, alert, normal mood/affect, oriented x 3 ICD10 Worksheet Patient Problems: Problems Problem Status Onset Diabetes Acute S/P ablation of atrial fibrillation Acute Ischemic cardiomyopathy Acute Paroxysmal atrial fibrillation Acute S/P CABG x 4 Acute CKD (chronic kidney disease) Acute
[2018-02-05] MEDS ORDERED: LIDOCAINE 1% 5 ML SDV ONE (07:38)
[2018-02-05] MEDS ORDERED: LIDOCAINE 1% 300 MG/30 ML SDV ONE (07:39)
[2018-02-05] MEDS ORDERED: FUROSEMIDE 20 MG/2 ML VIAL IVP ONE (07:56)
[2018-02-05] MEDS ORDERED: ALBUMIN 5% 250 ML IV ONE (08:30)
[2018-02-05] MEDS ORDERED: DOPamine/DEXTROSE 400 MG/250 ML BAG IV ONE (08:40)
[2018-02-05] MEDS ORDERED: ALBUMIN 5% 250 ML BOTTLE IV ONE (08:41)
[2018-02-05] MEDS: SENNOSIDES/DOCUSATE SODIUM TAB PO SCH ×2 (09:30→20:42)
[2018-02-05] MEDS: PANTOPRAZOLE SODIUM 40 MG TAB PO SCH (09:30)
[2018-02-05] MEDS: MUPIROCIN 2% 22 GM OINT NS SCH ×2 (09:31→23:01)
[2018-02-05] MEDS: FAMOTIDINE 20 MG/NACL 50 ML IV SCH (11:23)
[2018-02-05] MEDS: CHLORHEXIDINE GLUCONATE 15 ML UDL PO SCH (11:25)
--- NOTE | 2018-02-05 15:08 | PDINTPN ---
Nightclub Manager Progress Note Assessment/Plan: ASSESSMENT 82-year-old male with severe 3 vessel disease status post CABG, pulmonary vein isolation and left atrial appendage occlusion postoperative day 1 # severe 3 vessel coronary disease # atrial fibrillation # hypertension # hyperlipidemia # DM # diastolic heart failure # obesity # postop respiratory failure, expected # encephalopathy, postoperative, expected # CKD stage 3 PLAN # continue dopamine and p.r.n. Albumin and PRBC for hypotension # diuresis when able # aggressive pulmonary toilet # supplemental oxygen wean as able # advance diet when tolerating po # avoid nephrotoxins including Toradol # advise outpatient home sleep study given clinical diagnosis of GABRIEL # if patient develops desaturations overnight given body habitus and concerns for GABRIEL consider empiric trial of CPAP # Analgesia APAP, fentanyl # Sedation none # Thromboprophylaxis - SQ hep # Head of bed elevated # Ulcer prophylaxis -PPI # Glucose SSI # Skin no skin breakdown # Delirium - delirium precautions 02/05/18 15:08 Subjective: Slept well overnight. Still with hemodynamic instability requiring dopamine and albumin as well as PRBC infusions. Pain improved today no headaches no new worsening chest pain diarrhea or abdominal pain. Objective: Vital Signs Temp Pulse Resp BP Pulse Ox 36.4 C 65 18 132/52 H 97 02/05/18 12:00 02/05/18 14:00 02/05/18 14:00 02/05/18 14:00 02/05/18 14:00 Laboratory Results 02/05/18 04:10 02/05/18 04:10 02/04/18 02/05/18 02/06/18 05:59 05:59 05:59 Intake Total 720 1632.9 Output Total 2523 295 Balance 720 -890.1 -295 PT 13.7 SEC (12.0-15.0) 02/03/18 09:15 INR 1.03 (0.83-1.16) 02/03/18 09:15 ICD10 Worksheet Patient Problems: Problems Problem Status Onset CKD (chronic kidney disease) Acute Diabetes Acute Ischemic cardiomyopathy Acute Paroxysmal atrial fibrillation Acute S/P CABG x 4 Acute S/P ablation of atrial fibrillation Acute
[2018-02-05] MEDS: NS 1,000 ML IV SCH (15:12)
[2018-02-05] MEDS: ASPIRIN 81 MG CHEWABLE TAB PO SCH (15:16)
[2018-02-05] MEDS ORDERED: ASPIRIN 81 MG CHEWABLE TAB TUBE PRN (15:24)
--- NOTE | 2018-02-05 16:18 | HOSPPROG ---
Hospitalist Progress Note Assessment/Plan: 82yo M with a history of type 2 diabetes, HTN, HLD, CKD (baseline Cr 2.6-2.9), atrial fibrillation on AC who was found to have severe 3 vessel coronary disease after developing unstable angina. Now s/p CABG. Medicine has been consulted for management of diabetes. 1. Type 2 diabetes: A1c 6.2% - Insulin gtt off this afternoon - Will restart basal insulin at low dose given minimal PO intake. Start lantus 5 units this evening - Continue SSI, regular BG checks - Goal blood sugar 110-180 in chikis-operative period 2. CKD stage 3-4 - No metformin 3. Coronary artery disease - s/p CABG 02/[address] Jarrett 4. Atrial fibrillation - Had left atrial appendage closure during procedure - Holding eliquis until cleared by surgery We will continue to follow along. Subjective: Sitting up in chair. Hasn't eaten much today. Some expected post-op chest pain. Objective: Vital Signs Temp Pulse Resp BP Pulse Ox 36.4 C 69 21 H 146/60 H 94 02/05/18 16:00 02/05/18 16:00 02/05/18 16:00 02/05/18 16:00 02/05/18 16:00 Laboratory Results 02/05/18 04:10 02/04/18 02/05/18 02/06/18 05:59 05:59 05:59 Intake Total 720 1632.9 Output Total 2523 295 Balance 720 -890.1 -295 PT 13.7 SEC (12.0-15.0) 02/03/18 09:15 INR 1.03 (0.83-1.16) 02/03/18 09:15 - Physical Exam Constitutional: no apparent distress, appears nourished, not in pain Eyes: PERRL, anicteric sclera, EOMI Ears, Nose, Mouth, Throat: moist mucous membranes, hearing normal, ears appear normal, no oral mucosal ulcers Cardiovascular: regular rate and rhythym, no murmur, rub, or gallop, No edema Respiratory: no respiratory distress, no rales or rhonchi, clear to auscultation Gastrointestinal: normoactive bowel sounds, soft, non-tender abdomen, no palpable masses Genitourinary: no bladder fullness, no bladder tenderness, no renal bruits Skin: no rashes or abrasions, no fluctuance, no induration, other (sternal incision c/d/i) Musculoskeletal: full muscle strength, no muscle tenderness, normal joint ROM Neurologic: AAOx3, sensation intact bilaterally Psychiatric: interacting appropriately, not anxious, not encephalopathic, thought process linear ICD10 Worksheet Patient Problems: Problems Problem Status Onset CKD (chronic kidney disease) Acute Diabetes Acute Ischemic cardiomyopathy Acute Paroxysmal atrial fibrillation Acute S/P CABG x 4 Acute S/P ablation of atrial fibrillation Acute
[2018-02-05] MEDS: INSULIN LISPRO 100 UNIT/ML SC SCH (18:07)
[2018-02-05] MEDS: INSULIN GLARGINE 100 UNITS/ML UNIT SC SCH (20:42)
[2018-02-05] MEDS: HYDROCODONE/APAP 5/325 TAB PO PRN (22:59)
[2018-02-06 06:55] LABS: PLATELET COUNT 115 10^3/uL (150-400)
[2018-02-06] MEDS: FAMOTIDINE 20 MG/NACL 50 ML IV SCH (08:57)
[2018-02-06] MEDS: INSULIN LISPRO 100 UNIT/ML SC SCH ×3 (08:58→17:39)
[2018-02-06] MEDS: SENNOSIDES/DOCUSATE SODIUM TAB PO SCH ×2 (08:59→20:29)
[2018-02-06] MEDS: HYDROCODONE/APAP 5/325 TAB PO PRN ×3 (08:59→20:27)
[2018-02-06] MEDS: ASPIRIN 81 MG CHEWABLE TAB PO SCH (08:59)
[2018-02-06] MEDS: PANTOPRAZOLE SODIUM 40 MG TAB PO SCH (08:59)
[2018-02-06] MEDS: MUPIROCIN 2% 22 GM OINT NS SCH (09:00)
[2018-02-06] MEDS: FUROSEMIDE 40 MG TAB PO SCH ×2 (09:28→15:32)
[2018-02-06] MEDS: POTASSIUM CL 20 MEQ TAB PO SCH ×2 (09:28→20:27)
[2018-02-06] MEDS: HEPARIN 5,000 UNIT/0.5 ML INJ SC SCH ×3 (09:46→20:29)
[2018-02-06] MEDS ORDERED: traMADol 50 MG TAB PO PRN (12:12)
[2018-02-06] MEDS ORDERED: MAGNESIUM HYDROXIDE 30 ML UDCUP PO PRN (12:12)
--- NOTE | 2018-02-06 12:29 | HOSPPROG ---
Hospitalist Progress Note Assessment/Plan: 82M s/p CABG, DAKOTA ligation, consulted for DM management impr: 1. DM2, insulin dependent plan: - cont glargine at 5U (home dose 15U); may need to increase dose Subjective: cc - s/p CABG; ate a full lunch, no N/V; ambulated twice; no CP or SOB Objective: Vital Signs Temp Pulse Resp BP Pulse Ox 37.1 C 92 19 158/71 H 92 02/06/18 10:33 02/06/18 10:33 02/06/18 10:33 02/06/18 10:33 02/06/18 10:33 Laboratory Results 02/06/18 06:30 02/06/18 06:30 02/05/18 02/06/18 02/07/18 05:59 05:59 05:59 Intake Total 1632.9 2996 Output Total 2523 1745 200 Balance -890.1 1251 -200 PT 13.7 SEC (12.0-15.0) 02/03/18 09:15 INR 1.03 (0.83-1.16) 02/03/18 09:15 chart reviewed CXR reviewed labs reviewed - Physical Exam Constitutional: no apparent distress, appears nourished Cardiovascular: regular rate and rhythym, no murmur, rub, or gallop Respiratory: no respiratory distress, no rales or rhonchi, clear to auscultation Gastrointestinal: normoactive bowel sounds, soft, non-tender abdomen, no palpable masses ICD10 Worksheet Patient Problems: Problems Problem Status Onset Diabetes Acute S/P ablation of atrial fibrillation Acute Ischemic cardiomyopathy Acute Paroxysmal atrial fibrillation Acute S/P CABG x 4 Acute CKD (chronic kidney disease) Acute
--- NOTE | 2018-02-06 13:55 | SOAPPROG ---
[facility] Progress Note Assessment/Plan: POD #2: Urgent CABGx4 (RAINES-LAD, SVG-OM1, SVG-OM3, SVG-PDA), BL PVI ablation, AtriCLip exclusion of DAKOTA, EVH BL thighs CAD/unstable angina s/p CABGx4 - BB, ASA, statin for secondary prevention when appropriate - Will d/c pacing wires and chest tubes today. Paroxysmal atrial fibrillation s/p BL PVI ablation and exclusion of DAKOTA - Currently in SR 80-90's. - Will resume Eliquis when appropriate Ischemic cardiomyopathy with pre-op EF of 47% - Off dopamine. - Start Lasix today. - BB when appropriate Acute blood loss anemia - H&H 10.1/31.0 s/p 2U PRBC postop - Will monitor Secondary thrombocytopenia d/t CPB - Plt cont 115k. - Will follow. Leukocytosis - WBC 19.9 (14.5). - No overt evidence of infection. - Will follow. Acute on chronic kidney disease (stage 3-4) with baseline pre-op Cr 2.4 - Off Dopamine. - BUN 51/Cr 3.1 (48/2.8) - Adequate UOP (950mls/12hrs) - Will continue IVF at 50mls/hr. DM, on Lantus, with A1C of 6.2% - On SSI. - Hospitalist to manage further Deconditioning s/p surgery - Continue PT/OT. - Encourage ambulation/IS. Subjective: Patient reports improvement in his surgical pain. No complaints. Objective: Vital Signs Temp Pulse Resp BP Pulse Ox 36.4 C 94 20 144/66 H 92 02/06/18 12:00 02/06/18 12:00 02/06/18 12:00 02/06/18 12:00 02/06/18 12:00 Laboratory Results 02/06/18 06:30 02/06/18 06:30 02/05/18 02/06/18 02/07/18 05:59 05:59 05:59 Intake Total 1632.9 2996 Output Total 2523 1745 460 Balance -890.1 1251 -460 PT 13.7 SEC (12.0-15.0) 02/03/18 09:15 INR 1.03 (0.83-1.16) 02/03/18 09:15 Physical Exam - Physical Exam General Appearance: WD/WN, alert, no apparent distress Neck: supple Respiratory: lungs clear, decreased breath sounds (right base) Cardiac/Chest: regular rate, rhythm, other (no murmur, rubs, gallops. sternum stable. sternotomy c/d/i. ) Abdomen: normal bowel sounds, non-tender, soft Skin: normal color, warm/dry Extremities: other (warm, 1+ lower extremity pitting edema. ) Neuro/Psych: alert, normal mood/affect, oriented x 3 ICD10 Worksheet Patient Problems: Problems Problem Status Onset CKD (chronic kidney disease) Acute Diabetes Acute Ischemic cardiomyopathy Acute Paroxysmal atrial fibrillation Acute S/P CABG x 4 Acute S/P ablation of atrial fibrillation Acute
[2018-02-06] MEDS ORDERED: NS 1,000 ML IV SCH (14:45)
[2018-02-06] MEDS: POLYETHYLENE GLYCOL 3350 17 GM PKT PO PRN (17:44)
[2018-02-06] MEDS: diphenhydrAMINE 25 MG CAP PO SCH (20:29)
[2018-02-06] MEDS: INSULIN GLARGINE 100 UNITS/ML UNIT SC SCH (20:40)
[2018-02-07] MEDS: HYDROCODONE/APAP 5/325 TAB PO PRN ×2 (06:42→20:52)
[2018-02-07] MEDS: HEPARIN 5,000 UNIT/0.5 ML INJ SC SCH (06:43)
[2018-02-07 07:04] LABS: PLATELET COUNT 110 10^3/uL (150-400)
[2018-02-07] MEDS: INSULIN LISPRO 100 UNIT/ML SC SCH ×3 (08:51→17:39)
[2018-02-07] MEDS: ASPIRIN 81 MG CHEWABLE TAB PO SCH (09:35)
[2018-02-07] MEDS: FUROSEMIDE 40 MG TAB PO SCH ×2 (09:35→15:36)
[2018-02-07] MEDS: PANTOPRAZOLE SODIUM 40 MG TAB PO SCH (09:35)
[2018-02-07] MEDS: POTASSIUM CL 20 MEQ TAB PO SCH ×2 (09:35→20:52)
[2018-02-07] MEDS: SENNOSIDES/DOCUSATE SODIUM TAB PO SCH ×2 (09:35→20:51)
[2018-02-07] MEDS: METOPROLOL TARTRATE 25 MG TAB PO SCH ×2 (09:35→20:52)
[2018-02-07] MEDS: POLYETHYLENE GLYCOL 3350 17 GM PKT PO PRN (09:38)
[2018-02-07] MEDS: ACETAMINOPHEN 325 MG TAB PO PRN (11:12)
--- NOTE | 2018-02-07 11:40 | HOSPPROG ---
Hospitalist Progress Note Assessment/Plan: 82M s/p CABG, DAKOTA ligation, consulted for DM management impr: 1. DM2, insulin dependent plan: - incr glargine 5U -> 8U (home dose 15U); follow glucs Subjective: cc s/p CABG; ambulating; eating about 50% of normal Objective: Vital Signs Temp Pulse Resp BP Pulse Ox 37.1 C 76 20 137/77 H 92 02/07/18 11:18 02/07/18 11:18 02/07/18 11:18 02/07/18 11:18 02/07/18 11:18 Laboratory Results 02/07/18 06:00 02/07/18 06:00 02/06/18 02/07/18 02/08/18 05:59 05:59 05:59 Intake Total 2996 1645 Output Total 1745 1660 250 Balance 1251 -15 -250 PT 13.7 SEC (12.0-15.0) 02/03/18 09:15 INR 1.03 (0.83-1.16) 02/03/18 09:15 - Physical Exam Constitutional: appears nourished Eyes: anicteric sclera Ears, Nose, Mouth, Throat: other (R IJ cntral line) Cardiovascular: No edema Respiratory: no respiratory distress Gastrointestinal: No distension Genitourinary: No garner in urethra Skin: warm Musculoskeletal: full muscle strength Neurologic: AAOx3 Psychiatric: not anxious ICD10 Worksheet Patient Problems: Problems Problem Status Onset Diabetes Acute S/P ablation of atrial fibrillation Acute Ischemic cardiomyopathy Acute Paroxysmal atrial fibrillation Acute S/P CABG x 4 Acute CKD (chronic kidney disease) Acute
--- NOTE | 2018-02-07 13:02 | SOAPPROG ---
SOAP Progress Note Assessment/Plan: POD #3: Urgent CABGx4 (RAINES-LAD, SVG-OM1, SVG-OM3, SVG-PDA), BL PVI ablation, AtriCLip exclusion of DAKOTA, EVH BL thighs CAD/unstable angina s/p CABGx4 - BB, ASA, statin for secondary prevention when appropriate - Pacing wires and chest tubes out. Paroxysmal atrial fibrillation s/p BL PVI ablation and exclusion of DAKOTA - Currently in SR 90-100's - Start Metoprolol 25mg po BID - Will resume home Eliquis today Ischemic cardiomyopathy with pre-op EF of 47% - On Lasix - Will start Metoprolol today Hypertension - SBP 140-150's - Will start Metoprolol 25mg BID Acute blood loss anemia - H&H 9.8/29.8 s/p 2U PRBC postop - Will monitor Secondary thrombocytopenia d/t CPB - Plt cont 110k (115k) - Will follow Leukocytosis - WBC 17.4 (19.9) - No overt evidence of infection. - Will follow. Acute on chronic kidney disease (stage 3-4) with baseline pre-op Cr 2.4 - BUN 52/Cr 3.3 (51/3.1) - Adequate UOP (810mls/12hrs) - D/c IVF. On Lasix 40mg po BID. DM, on Lantus, with A1C of 6.2% - On SSI. - Hospitalist following. Deconditioning s/p surgery - Continue PT/OT. - Encourage ambulation/IS. Subjective: Patient reports good pain control. "I got good sleep last night." Complains that he still is not passing flatus or having BMs but would like to hold off on suppository or enema for now. Objective: Vital Signs Temp Pulse Resp BP Pulse Ox 37.1 C 76 20 137/77 H 92 02/07/18 11:18 02/07/18 11:18 02/07/18 11:18 02/07/18 11:18 02/07/18 11:18 Laboratory Results 02/07/18 06:00 02/07/18 06:00 02/06/18 02/07/18 02/08/18 05:59 05:59 05:59 Intake Total 2996 1645 Output Total 1745 1660 600 Balance 1251 -15 -600 PT 13.7 SEC (12.0-15.0) 02/03/18 09:15 INR 1.03 (0.83-1.16) 02/03/18 09:15 Physical Exam - Physical Exam General Appearance: WD/WN, alert, no apparent distress Neck: supple Respiratory: lungs clear, decreased breath sounds (bases), other (no wheezing, rhonchi, rales. ) Cardiac/Chest: tachycardia, other (reg rhythm. no murmurs, rubs, gallops. sternum stable. sternotomy c/d/i.) Abdomen: normal bowel sounds, non-tender, soft Skin: normal color, warm/dry Extremities: other (warm, 1+ lower extremity edema. bilat leg incisions c/d/i. ) Neuro/Psych: alert, normal mood/affect, oriented x 3 ICD10 Worksheet Patient Problems: Problems Problem Status Onset CKD (chronic kidney disease) Acute Diabetes Acute Ischemic cardiomyopathy Acute Paroxysmal atrial fibrillation Acute S/P CABG x 4 Acute S/P ablation of atrial fibrillation Acute
[2018-02-07] MEDS: APIXABAN 2.5 MG TAB PO SCH (20:52)
[2018-02-07] MEDS: diphenhydrAMINE 25 MG CAP PO SCH (20:52)
[2018-02-07] MEDS: ATORVASTATIN CALCIUM 40 MG TAB PO SCH (20:52)
[2018-02-07] MEDS: INSULIN GLARGINE 100 UNITS/ML UNIT SC SCH (20:58)
--- NOTE | 2018-02-08 07:07 | SOAPPROG ---
SOAP Progress Note Assessment/Plan: POD #4: Urgent CABGx3 (RAINES-LAD, SVG-OM1, SVG-OM3, SVG-PDA), BL PVI ablation, AtriCLip exclusion of DAKOTA, EVH BL thighs CAD/unstable angina s/p CABGx4 - BB, ASA, statin for secondary prevention when appropriate Paroxysmal atrial fibrillation s/p BL PVI ablation and exclusion of DAKOTA - Post-op sinus bradycardia with adequate BP - Eliquis resumed CKD with baseline with pre-op Cr 2.4 - Adequate UOP without metabolic derangements - Continue supportive care Ischemic cardiomyopathy with pre-op EF of 47% - Continue Lasix/BB DM, on Lantus, with A1C of 6.2% - Hospitalist to manage further Acute blood loss anemia - Stable s/p 2U PRBC Subjective: Feels well. Pain well-controlled, denies SOB. Objective: Vital Signs Temp Pulse Resp BP Pulse Ox 36.8 C 91 17 176/89 H 93 02/08/18 03:11 02/08/18 03:11 02/08/18 03:11 02/08/18 03:11 02/08/18 03:11 Laboratory Results 02/07/18 06:00 02/07/18 02/08/18 02/09/18 05:59 05:59 05:59 Intake Total 1645 2350 Output Total 1660 4075 Balance -15 -1725 PT 13.7 SEC (12.0-15.0) 02/03/18 09:15 INR 1.03 (0.83-1.16) 02/03/18 09:15 Physical Exam - Physical Exam General Appearance: WD/WN, alert, no apparent distress, obese EENT: No scleral icterus (R), No scleral icterus (L) Neck: normal inspection Respiratory: No respiratory distress Cardiac/Chest: regular rate, rhythm Abdomen: non-tender, soft, No distended Skin: normal color, warm/dry Extremities: No pedal edema Neuro/Psych: no motor/sensory deficits, alert, normal mood/affect, oriented x 3 ICD10 Worksheet Patient Problems: Problems Problem Status Onset CKD (chronic kidney disease) Acute Diabetes Acute Ischemic cardiomyopathy Acute Paroxysmal atrial fibrillation Acute S/P CABG x 4 Acute S/P ablation of atrial fibrillation Acute
--- NOTE | 2018-02-08 08:48 | HOSPPROG ---
Hospitalist Progress Note Assessment/Plan: 82M s/p CABG, DAKOTA ligation, consulted for DM management impr: 1. DM2, insulin dependent plan: - cont glargine 8U HS (home dose 15U) - follow glucoses Subjective: did not sleep well; still very weak; eating small meals Objective: Vital Signs Temp Pulse Resp BP Pulse Ox 37.1 C 89 18 162/65 H 94 02/08/18 07:52 02/08/18 07:52 02/08/18 07:52 02/08/18 07:52 02/08/18 07:52 Laboratory Results 02/07/18 06:00 02/08/18 06:30 02/07/18 02/08/18 02/09/18 05:59 05:59 05:59 Intake Total 1645 2350 Output Total 1660 4375 350 Balance - -350 PT 13.7 SEC (12.0-15.0) 02/03/18 09:15 INR 1.03 (0.83-1.16) 02/03/18 09:15 - Physical Exam Constitutional: no apparent distress Ears, Nose, Mouth, Throat: other (R IJ central line) Cardiovascular: regular rate and rhythym, no murmur, rub, or gallop Respiratory: no respiratory distress, no rales or rhonchi, clear to auscultation Gastrointestinal: normoactive bowel sounds, soft, non-tender abdomen, no palpable masses ICD10 Worksheet Patient Problems: Problems Problem Status Onset Diabetes Acute S/P ablation of atrial fibrillation Acute Ischemic cardiomyopathy Acute Paroxysmal atrial fibrillation Acute S/P CABG x 4 Acute CKD (chronic kidney disease) Acute
[2018-02-08] MEDS: ASPIRIN 81 MG CHEWABLE TAB PO SCH (10:18)
[2018-02-08] MEDS: INSULIN LISPRO 100 UNIT/ML SC SCH ×3 (10:18→18:44)
[2018-02-08] MEDS: APIXABAN 2.5 MG TAB PO SCH ×2 (10:18→20:40)
[2018-02-08] MEDS: PANTOPRAZOLE SODIUM 40 MG TAB PO SCH (10:19)
[2018-02-08] MEDS: METOPROLOL TARTRATE 50 MG TAB PO SCH ×2 (10:19→20:40)
[2018-02-08] MEDS: SENNOSIDES/DOCUSATE SODIUM TAB PO SCH ×2 (10:30→21:10)
[2018-02-08] MEDS: FUROSEMIDE 40 MG TAB PO SCH (10:47)
[2018-02-08] MEDS: POTASSIUM CL 20 MEQ TAB PO SCH (10:49)
[2018-02-08] MEDS: ACETAMINOPHEN 325 MG TAB PO PRN (11:17)
--- NOTE | 2018-02-08 11:42 | POSTANESTH ---
Post Anesthetic Evaluation Cardiovascular Status: Normal, Stable Respiratory Status: Normal, Stable Level of Consciousness/Mental Status: Can Participate in Eval Pain Control: Adequate, Prn Tx Ordered Nausea/Vomiting Control: Adequate, Prn Tx Ordered Complications Possibly Related to Anesthesia: None Noted
--- NOTE | 2018-02-08 11:47 | ASMTCMCOM ---
CM Note CM Note Notes: Spoke w patient's son Antonio about discharge planning. He is unable to care for his father at home. PT/OT recommending SNF. Antonio agrees to referral to [facility] and will communicate this to his father. Per Cardiothoracic surgery, d/c Thursday or Thursday. Case Management will follow. Date Signed: 02/08/2018 11:46 AM Electronically Signed By:Stacie Maloney RN
[2018-02-08] MEDS ORDERED: LIDOCAINE 1% 300 MG/30 ML SDV ONE (13:43)
[2018-02-08] MEDS: diphenhydrAMINE 25 MG CAP PO SCH (20:39)
[2018-02-08] MEDS: HYDROCODONE/APAP 5/325 TAB PO PRN (20:39)
[2018-02-08] MEDS: INSULIN GLARGINE 100 UNITS/ML UNIT SC SCH (20:40)
[2018-02-08] MEDS: ATORVASTATIN CALCIUM 40 MG TAB PO SCH (20:40)
[2018-02-09] MEDS: HYDROCODONE/APAP 5/325 TAB PO PRN (04:57)
[2018-02-09] MEDS: INSULIN LISPRO 100 UNIT/ML SC SCH ×3 (06:55→19:25)
[2018-02-09] MEDS ORDERED: FUROSEMIDE 40 MG TAB PO SCH (09:00)
[2018-02-09] MEDS: SENNOSIDES/DOCUSATE SODIUM TAB PO SCH ×2 (09:06→20:52)
[2018-02-09] MEDS: ASPIRIN 81 MG CHEWABLE TAB PO SCH (09:06)
[2018-02-09] MEDS: APIXABAN 2.5 MG TAB PO SCH ×2 (09:07→20:50)
[2018-02-09] MEDS: METOPROLOL TARTRATE 50 MG TAB PO SCH ×2 (09:07→20:49)
[2018-02-09] MEDS: PANTOPRAZOLE SODIUM 40 MG TAB PO SCH (09:08)
--- NOTE | 2018-02-09 09:14 | SOAPPROG ---
SOAP Progress Note Assessment/Plan: POD #5: Urgent CABGx3 (RAINES-LAD, SVG-OM1, SVG-OM3, SVG-PDA), BL PVI ablation, AtriCLip exclusion of DAKOTA, EVH BL thighs CAD/unstable angina s/p CABGx4 - BB, ASA, statin for secondary prevention Paroxysmal atrial fibrillation s/p BL PVI ablation and exclusion of DAKOTA - Post-op sinus bradycardia with adequate BP - Eliquis resumed CKD with baseline with pre-op Cr 2.4 - Adequate UOP without metabolic derangements, Cr 2.9 down from 3.3 - Continue supportive care Ischemic cardiomyopathy with pre-op EF of 47% - Continue Lasix/BB DM, on Lantus, with A1C of 6.2% - Hospitalist to manage further Acute blood loss anemia - Stable s/p 2U PRBC DVT ppx - eliquis, scds, ambulation Post-op left pleural effusion - IR thoracentesis yesterday evacuated 800 cc Dispo Increase Lopressor to 75 mg PO BID (home dose 100 mg) Anticipate SNF tomorrow Recheck CXR tomorrow Subjective: Hypertensive overnight. Feels much better since his thoracentesis but is still very fatigued. Objective: Vital Signs Temp Pulse Resp BP Pulse Ox 36.6 C 81 20 128/80 H 97 02/09/18 07:55 02/09/18 07:55 02/09/18 07:55 02/09/18 07:55 02/09/18 07:55 Laboratory Results 02/07/18 06:00 02/09/18 04:55 02/08/18 02/09/18 02/10/18 05:59 05:59 05:59 Intake Total 2350 700 Output Total 4375 2845 Balance -2024 PT 13.7 SEC (12.0-15.0) 02/03/18 09:15 INR 1.03 (0.83-1.16) 02/03/18 09:15 - Physical Exam General Appearance: WD/WN, alert, no apparent distress, obese EENT: No scleral icterus (R), No scleral icterus (L) Neck: normal inspection Respiratory: No respiratory distress Cardiac/Chest: regular rate, rhythm, sternum CDI Abdomen: non-tender, soft, No distended Skin: normal color, warm/dry, b/l ecchymotic legs Extremities: No pedal edema Neuro/Psych: no motor/sensory deficits, alert, normal mood/affect, oriented x 3 ICD10 Worksheet Patient Problems: Problems Problem Status Onset CKD (chronic kidney disease) Acute Diabetes Acute Ischemic cardiomyopathy Acute Paroxysmal atrial fibrillation Acute S/P CABG x 4 Acute S/P ablation of atrial fibrillation Acute
--- NOTE | 2018-02-09 10:04 | HOSPPROG ---
Hospitalist Progress Note Assessment/Plan: 82-year-old with severe CAD status post CABG and left atrial appendage ligation. We are following for diabetes management. Patient currently on glargine at a lower dose than his home dose. Blood sugars are well controlled # diabetes, type 2 insulin-dependent * Continue current dose of glargine at discharge 8 units at night * Can adjust up as outpatient depending on sugars and oral intake * Call with questions Subjective: Patient new to me and chart reviewed. No specific complaints except for chest wall pain Objective: Vital Signs Temp Pulse Resp BP Pulse Ox 36.6 C 81 20 128/80 H 97 02/09/18 07:55 02/09/18 07:55 02/09/18 07:55 02/09/18 07:55 02/09/18 07:55 Laboratory Results 02/07/18 06:00 02/09/18 04:55 02/08/18 02/09/18 02/10/18 05:59 05:59 05:59 Intake Total 2350 700 Output Total 4375 2845 Balance -2024 -2144 PT 13.7 SEC (12.0-15.0) 02/03/18 09:15 INR 1.03 (0.83-1.16) 02/03/18 09:15 - Physical Exam Constitutional: uncomfortable Cardiovascular: regular rate and rhythym Respiratory: no respiratory distress ICD10 Worksheet Patient Problems: Problems Problem Status Onset Diabetes Acute S/P ablation of atrial fibrillation Acute Ischemic cardiomyopathy Acute Paroxysmal atrial fibrillation Acute S/P CABG x 4 Acute CKD (chronic kidney disease) Acute
[2018-02-09] MEDS: ATORVASTATIN CALCIUM 40 MG TAB PO SCH (20:50)
[2018-02-09] MEDS: diphenhydrAMINE 25 MG CAP PO SCH (20:51)
[2018-02-09] MEDS: INSULIN GLARGINE 100 UNITS/ML UNIT SC SCH (21:23)
--- NOTE | 2018-02-10 07:38 | SOAPPROG ---
SOAP Progress Note Assessment/Plan: Assessment: POD#6 Urgent CABGx4 (RAINES-LAD, SVG-OM1, SVG-OM3, SVG-PDA), BL PVI ablation, AtriCLip exclusion of DAKOTA, EVH BL thighs PPD#2 Left sided thoracentesis with removal 800 ml. Sx CAD Fully revascularized with CABG. Secondary prevention with baby ASA, BB and statin. PAF/chronic AC w Eliquis - Assoc with moderate to severe LIZBET and Chen-Maze IV deferred in favor of PVI w exclusion of DAKOTA to limit pump time. Postop rhythm SB /SR. AF prophylaxis with BB resumed and uptitrated as tolerated. Antithrombotic prophylaxis with Eliquis for a [id number] score of 6 resumed. Outpatient surveillance as per Maze protocol. Ischemic cardiomyopathy, mild LVSD w chronic class I diastolic CHF. Post revascularization LVEF preserved. No prolonged pressor support. Moderate volume overload diuresed as tolerated. Staggered reintro of heart failure regimen as tolerated. Residual left pleural effusion successfully evacuated by thoracentesis. Residual right pleural effusion to be eval by US for amenability to thoracentesis. CKD4 Postop Cr stable. Adequate UOP maintained without metabolic derangements or significant rise in Cr. Continued care with nephrotoxins. DM2 Well controlled by preop A1C of 6.2%. Postop hyperglycemia managed with insulin gtt, transitioning to basal and SSI under the direction of hospitalist. Acute expected blood loss anemia - Stable s/p 2U PRBC. VTE prophylaxis with Eliquis. Plan: Rt sided US +/- thoracentesis Inc lasix to home dose of 60 mg daily Inc metoprolol to home dose of 100 mg BID Wean O2 Dispo - SNF ([facility]) tomorrow 02/10/18 07:38 Subjective: Better every day. Improving stamina and distressed about pleural effusions. Objective: Vital Signs Temp Pulse Resp BP Pulse Ox 37.2 C 79 19 151/84 H 96 02/10/18 07:29 02/10/18 07:29 02/10/18 07:29 02/10/18 07:29 02/10/18 07:29 Laboratory Results 02/07/18 06:00 02/10/18 04:43 02/09/18 02/10/18 02/11/18 05:59 05:59 05:59 Intake Total 700 1565 Output Total 2845 1375 Balance -2145 190 PT 13.7 SEC (12.0-15.0) 02/03/18 09:15 INR 1.03 (0.83-1.16) 02/03/18 09:15 HR controlled. Uptrending SBPs. Min suppl O2 req. Improving fluid balance. CXR-> bibasilar atelectasis with small left and small-mod rt effusions Physical Exam - Physical Exam General Appearance: alert, no apparent distress Respiratory: crackles (bases) Cardiac/Chest: regular rate, rhythm, other (Sternotomy and bilat venots CDI) Abdomen: non-tender, soft Skin: warm/dry Extremities: swelling (trace dependent) ICD10 Worksheet Patient Problems: Problems Problem Status Onset CKD (chronic kidney disease) Acute Chronic Disease Mgmt/Transitional Care Acute Diabetes Acute Ischemic cardiomyopathy Acute Paroxysmal atrial fibrillation Acute S/P CABG x 4 Acute S/P ablation of atrial fibrillation Acute
[2018-02-10] MEDS: ACETAMINOPHEN 325 MG TAB PO PRN (09:53)
[2018-02-10] MEDS: FUROSEMIDE 40 MG TAB PO SCH (09:54)
[2018-02-10] MEDS: INSULIN LISPRO 100 UNIT/ML SC SCH ×3 (09:55→19:16)
[2018-02-10] MEDS: APIXABAN 2.5 MG TAB PO SCH ×2 (09:55→22:48)
[2018-02-10] MEDS: METOPROLOL TARTRATE 100 MG TAB PO SCH ×2 (09:55→22:42)
[2018-02-10] MEDS: ASPIRIN 81 MG CHEWABLE TAB PO SCH (09:55)
[2018-02-10] MEDS ORDERED: LIDOCAINE 1% 300 MG/30 ML SDV ONE (10:13)
--- NOTE | 2018-02-10 13:30 | HOSPPROG ---
Hospitalist Progress Note Assessment/Plan: 82-year-old with severe CAD status post CABG and left atrial appendage ligation. We are following for diabetes management. Patient currently on glargine at a lower dose than his home dose. Blood sugars are well controlled # diabetes, type 2 insulin-dependent, A1C 6.2 * Continue current dose of glargine at discharge 8 units at night * Can adjust up as outpatient depending on sugars and oral intake * Call with questions # s/p CABG x4 # Bilateral Pleural Effusions #CKD4 #pAfib Subjective: glucose overall well controlled. A1C 6.2. will have thoracentesis today Objective: Vital Signs Temp Pulse Resp BP Pulse Ox 37.1 C 68 19 134/72 H 90 L 02/10/18 12:00 02/10/18 12:00 02/10/18 12:00 02/10/18 12:00 02/10/18 12:00 Laboratory Results 02/07/18 06:00 02/09/18 02/10/18 02/11/18 05:59 05:59 05:59 Intake Total 700 1565 Output Total 2845 1375 Balance -2145 190 PT 13.7 SEC (12.0-15.0) 02/03/18 09:15 INR 1.03 (0.83-1.16) 02/03/18 09:15 - Physical Exam Constitutional: no apparent distress Eyes: PERRL Ears, Nose, Mouth, Throat: moist mucous membranes, hearing normal Cardiovascular: regular rate and rhythym Respiratory: no respiratory distress Gastrointestinal: normoactive bowel sounds, soft, non-tender abdomen Skin: warm Neurologic: AAOx3 Psychiatric: interacting appropriately, not anxious, not encephalopathic Lymph, Heme, Immunologic: No petechiae ICD10 Worksheet Patient Problems: Problems Problem Status Onset CKD (chronic kidney disease) Acute Chronic Disease Mgmt/Transitional Care Acute Diabetes Acute Ischemic cardiomyopathy Acute Paroxysmal atrial fibrillation Acute S/P CABG x 4 Acute S/P ablation of atrial fibrillation Acute
[2018-02-10] MEDS: INSULIN GLARGINE 100 UNITS/ML UNIT SC SCH (22:42)
[2018-02-10] MEDS: ATORVASTATIN CALCIUM 40 MG TAB PO SCH (22:42)
[2018-02-10] MEDS: diphenhydrAMINE 25 MG CAP PO SCH (22:47)
[2018-02-10] MEDS: HYDROCODONE/APAP 5/325 TAB PO PRN (22:48)
--- NOTE | 2018-02-11 07:43 | SOAPPROG ---
SOAP Progress Note Assessment/Plan: POD #7: Urgent CABGx3 (RAINES-LAD, SVG-OM1, SVG-OM3, SVG-PDA), BL PVI ablation, AtriCLip exclusion of DAKOTA, EVH BL thighs CAD/unstable angina s/p CABGx4 - BB, ASA, statin for secondary prevention Paroxysmal atrial fibrillation s/p BL PVI ablation and exclusion of DAKOTA - SR - continue BB - Eliquis resumed CKD with baseline with pre-op Cr 2.4 - Cr 2.6 today - Adequate UOP without metabolic derangements - Continue supportive care Ischemic cardiomyopathy with pre-op EF of 47% - Continue Lasix/BB DM, on Lantus, with A1C of 6.2% - Hospitalist to manage further Acute blood loss anemia - Stable s/p 2U PRBC b/l pleural effusions - s/p b/l thoracentesis - Will obtain PA/lateral prior to f/u appt for further mgmt DVT prophylaxis - Eliquis/SCDs Disposition - SNF today Subjective: Pt c/o left inner thigh pain where vein was harvested. Denies SOB. Objective: Vital Signs Temp Pulse Resp BP Pulse Ox 36.9 C 72 12 136/74 H 96 02/11/18 04:00 02/11/18 04:00 02/11/18 04:00 02/11/18 04:00 02/11/18 04:00 Laboratory Results 02/11/18 05:20 02/11/18 05:20 02/10/18 02/11/18 02/12/18 05:59 05:59 05:59 Intake Total 1565 1090 Output Total 1375 1355 Balance 190 -265 PT 13.7 SEC (12.0-15.0) 02/03/18 09:15 INR 1.03 (0.83-1.16) 02/03/18 09:15 Physical Exam - Physical Exam General Appearance: WD/WN, alert, no apparent distress, obese EENT: No scleral icterus (R), No scleral icterus (L) Neck: normal inspection Respiratory: No respiratory distress Cardiac/Chest: regular rate, rhythm Abdomen: non-tender, soft, No distended Skin: normal color, warm/dry Extremities: pedal edema, other (bruising BL LE) Neuro/Psych: no motor/sensory deficits, alert, normal mood/affect, oriented x 3 ICD10 Worksheet Patient Problems: Problems Problem Status Onset CKD (chronic kidney disease) Acute Chronic Disease Mgmt/Transitional Care Acute Diabetes Acute Ischemic cardiomyopathy Acute Paroxysmal atrial fibrillation Acute S/P CABG x 4 Acute S/P ablation of atrial fibrillation Acute
[2018-02-11] MEDS: ACETAMINOPHEN 325 MG TAB PO PRN (07:50)
[2018-02-11] MEDS: FUROSEMIDE 40 MG TAB PO SCH (07:53)
[2018-02-11] MEDS: METOPROLOL TARTRATE 100 MG TAB PO SCH (07:53)
[2018-02-11] MEDS: ASPIRIN 81 MG CHEWABLE TAB PO SCH (07:54)
[2018-02-11] MEDS: APIXABAN 2.5 MG TAB PO SCH (07:54)
[2018-02-11] MEDS: INSULIN LISPRO 100 UNIT/ML SC SCH ×2 (08:32→13:56)
[2018-02-11] MEDS ORDERED: INSULIN GLARGINE 100 UNITS/ML UNIT SC SCH (08:44)
--- NOTE | 2018-02-11 08:47 | HOSPPROG ---
Hospitalist Progress Note Assessment/Plan: 82M s/p CABG, DAKOTA ligation, consulted for DM management Impr: 1. DM2, insulin dependent, A1c 6.2% plan: - glargine 10U HS (home dose 15U); will need to up-titrate as outpatient back to his home dose as he increases his PO intake - QACHS glucs as outpatient Subjective: c/o pain in L knee; ambulating today Objective: Vital Signs Temp Pulse Resp BP Pulse Ox 36.8 C 77 20 156/79 H 97 02/11/18 07:48 02/11/18 07:48 02/11/18 07:48 02/11/18 07:48 02/11/18 07:48 Laboratory Results 02/11/18 05:20 02/11/18 05:20 02/10/18 02/11/18 02/12/18 05:59 05:59 05:59 Intake Total 1565 1090 Output Total 1375 1355 150 Balance 190 -265 -150 PT 13.7 SEC (12.0-15.0) 02/03/18 09:15 INR 1.03 (0.83-1.16) 02/03/18 09:15 discussed wtih Abdirahman - plan for dc today to SNF CXR personally reviewed ICD10 Worksheet Patient Problems: Problems Problem Status Onset Chronic Disease Mgmt/Transitional Care Acute Diabetes Acute S/P ablation of atrial fibrillation Acute Ischemic cardiomyopathy Acute Paroxysmal atrial fibrillation Acute S/P CABG x 4 Acute CKD (chronic kidney disease) Acute
[2018-02-11 11:31] VITALS: BP 123/79
--- NOTE | 2018-02-11 11:56 | PDIAF ---
- Diagnosis Diagnosis: Urgent CABGx3, BL PVI ablation Code Status: Full Code - Medication Management Discharge Medications: electronically signed and located in the Home Medication List. PICC Care - Routine: N/A - Orders Services needed: Registered Nurse, Certified Finance Analyst, Master Picker , Physical Therapy, Occupational Therapy Isolation Type: None Oxygen: 2 l/min via NC continuous Diet Recommendation: ADA 2000 consistent carb, fluid restriction (use comment for amount) (2 liters per day) Diet Texture: Regular Texture Diet, Thin Liquids, Meds Whole w/Liquids Weigh Patient: daily Ryan: No Additional Instructions: Discharge Instructions: Call [facility] cardiac rehab to enroll in phase 2 classes if not already arranged. Sternal precautions x 4 weeks. Avoid lifting > 10lbs with an outstretched arm. Avoid push/pull activities. No driving until cleared by surgery. Elevate low legs at rest. Avoid prolonged standing or dangling. Cleanse wounds once daily with soap and water. Avoid immersion (pool, hot tub, bath) until scabs off. Ok to leave all wounds open to air. Avoid creams or ointments until scabs fall off. Log daily vital signs once home: weight, heart rate, blood pressure, and pulse oximetry if on oxygen. Call [facility] for overnight weight gain > 2lbs, weekly gain > 5lbs or worsening leg swelling. Call [facility] for resting heart rate > 120 OR for systolic blood pressure consistently < 90 or > 140. Target oxygen saturation > 89%. Ok to use [id number] medications for bowel function. Chest x-ray Instructions: Please obtain a chest xray prior to surgical appointment. Chest x-rays dont require an appointment. Come to the Emergency Room entrance at the [facility] location. Sign in at the computer kiosk in the entryway. You will be given a number and may sit in the waiting area until called. You will be registered and directed to the Imaging desk on the 1st floor. This process can take up to an hour. Make sure you allow enough time before your appointment to have your x-ray taken. - Labs/Radiology BMP Date: 02/15/18 (Fax results to: [phone] attn: Carol Zamarripa) Imaging Orders: CXR at [facility] prior to surgical follow-up - Follow Up Care Current Providers and Referrals: Cynthia Andres PA [Primary Care Provider] - Louis Marshall MD [Medical Doctor] - Reyes Jarrett DO [Doctor of Osteopathy] - 02/16/18 11:00 am
--- NOTE | 2018-02-11 11:59 | PDDCSUM ---
Discharge Summary Discharge Summary: ADMISSION DATE: 02/03/18 DISCHARGE DATE: 02/11/18 ADMISSION DIAGNOSES 1. CAD 2. Unstable angina 3. Ischemic cardiomyopathy, EF 47% 4. Paroxysmal atrial fibrillation 5. CKD stage 4 6. DM DISCHARGE DIAGNOSES 1. CAD 2. Unstable angina 3. Ischemic cardiomyopathy, EF 47% 4. Paroxysmal atrial fibrillation 5. CKD stage 4 6. DM 7. Acute post-op blood loss anemia 8. Bilateral pleural effusions PROCEDURES 02/04/18, Reyes Jarrett: Urgent CABGx4 (RAINES-LAD, SVG-OM1, SVG-OM3, SVG-PDA), B/L PVI ablation, AtriClip exclusion DAKOTA, EVH B/L LE HPI 82M with known anterior wall ischemia, worsening dyspnea and unstable angina found to have severe 3-vessel CAD after diagnostic LHC. HOSPITAL COURSE BY PROBLEM LIST 1. Unstable angina with severe 3-vessel CAD and ischemic cardiomyopathy (EF 47% ) - s/p CABGx4. Continue BB, ASA, statin and Lasix. 2. Paroxysmal atrial fibrillation- s/p BL PVI ablation and exclusion of DAKOTA. Discharged in SR. Continue Eliquis for thromboprophylaxis. Duration as per AF ablation protocol. Continue BB for AF prophylaxis. 3. CKD stage 4 - discharged with a Cr of 2.6 (baseline Cr 2.4) with adequate UOP and without metabolic derangements. Continue supportive care. Further mgmt as per PCP. 4. DM - well-controlled by A1c of 6.2%. Managed by hospitalist with a decrease in nightly Lantus. Further mgmt as per PCP. 5. B/L pleural effusions - s/p BL thoracenteses. Will re-evaluate PA/Lateral CXR at post-op f/u. CONDITION Good PERTINENT DISCHARGE CLINICAL INFORMATION Vitals: 123/79, 68 SR, 97% on 2L/min NC, +1 KG Exam: S1S2, No resp distress, ND, soft, NTP, BLE with extensive bruising from EVH and trace edema Labs: Cr 2.6 DISPOSITION [facility] ACTIVITY Pt was instructed on sternal precautions, activity limitations, and which problems to call [facility] with. Please see Discharge Plan in chart for specifics. DISCHARGE MEDICATIONS Continue: Metoprolol Tartrate 100 mg BID, Lasix 60 mg daily, Lipitor 40 mg daily, Eliquis 2.5 mg BID, Flomax 0.4 mg daily, Voltaren Gel prn New: Lantus 10 units daily, [place] 5/325 mg prn, ASA 81 mg daily, Tylenol prn Stop Amlodipine, Lisinopril, Lantus 15 units daily PENDING STUDIES/LABS 1. CXR prior to surgical follow-up 2. BMP, 02/15/18 FOLLOW-UP 1. Reyes Jarrett, 02/16/18, 11:00 AM 2. Louis Marshall, as directed 3. PCP, as directed
--- NOTE | 2018-02-11 12:58 | ASMTLACE ---
LACE Length of stay for Answers: 7-13 days current admission Acuity / Level of Answers: Yes Care: Did the patient have an inpatient admission? Comorbidities - select Answers: Congestive heart failure all that apply Diabetes (uncontrolled or controlled) Moderate or severe liver or renal disease Other Notes: HTN; AFib # of Emergency department Answers: 0 visits in the last 6 months Score: 16 Date Signed: 02/11/2018 12:58 PM Electronically Signed By:Jany Alonso RN
--- NOTE | 2018-02-11 13:01 | ASMTDCNOTE ---
Case Management Discharge Discharge Order Complete? Answers: Yes Patient to Obtain Answers: Other Notes: [facility] Medications Transportation Arranged Answers: Other Notes: w/c with O2 arranged by [facility] rehab Transport will Pick (Date 02/11/2018 03:30 PM & Time) Faxed Final Orders Answers: Yes Notes: to [facility] Agency/Facility Transfer Answers: Yes Notes: to [facility] Report Printed & Faxed to Receiving Agency Discharge Comments Notes: 02/11/2018 Case Management Note Faxed final orders. RN to call report. Ellen arranged transport with 15:30 quill picking machine operator. Case Management d/c poc: [facility]. Date Signed: 02/11/2018 01:00 PM Electronically Signed By:Jany Alonso RN
--- NOTE | 2018-02-11 13:01 | ASDISCHSUM ---
Discharge Information Plan Status:SNF Medically Cleared to Leave:02/10/2018 Discharge Date:02/10/2018 CM D/C Disposition:Residential Facility ADT D/C Disposition:Residential Facility Projected Discharge Date:02/10/2018 11:00 AM Transportation at D/C:Wheelchair Van Discharge Delay Reason: Follow-Up Date:02/10/2018 11:00 AM Discharge Slot: Final Diagnosis: Placement Information Referral Type:*Residential/SNF Referral ID:[id number] Provider Name:[facility] Address 1:[address] Address 2: City:[place] Selection Factors: State:[place] Patient Contact Information Contact Name:KYLAH Relationship:Son Address:[address] Work Phone: [facility]:[place] Alternate Phone: State/Zip Code:[place] [address] Email: Financial Information Financial Class:Medicare Primary Plan Desc:MEDICARE INPATIENT Primary Plan Number:[id number] Secondary Plan Desc:[place] Secondary Plan Number:[id number] Assessment Information LACE LACE Length of stay for Answers: 7-13 days current admission Acuity / Level of Answers: Yes Care: Did the patient have an inpatient admission? Comorbidities - select Answers: Congestive heart failure all that apply Diabetes (uncontrolled or controlled) Moderate or severe liver or renal disease Other Notes: HTN; AFib # of Emergency department Answers: 0 visits in the last 6 months Score: 16 Date Signed: 02/11/2018 12:58 PM Electronically Signed By:Jany Alonso RN [facility] CM Progress Note CM Note CM Note Notes: Pt is a 82 y/o man admitted for a coronary artery revascularization due to unstable coronary status. Dr. Jarrett will take pt to open open at some point. Needs are TBD at this time. CM to follow. Plan: TBD Date Signed: 02/04/2018 03:05 PM Electronically Signed By:JOHN Sellers [facility] CM Progress Note CM Note CM Note Notes: Spoke w patient's son Antonio about discharge planning. He is unable to care for his father at home. PT/OT recommending SNF. Antonio agrees to referral to [facility] and will communicate this to his father. Per Cardiothoracic surgery, d/c Thursday or Thursday. Case Management will follow. Date Signed: 02/08/2018 11:46 AM Electronically Signed By:Stacie Maloney RN Case Management Discharge Plan Note Case Management Discharge Discharge Order Complete? Answers: Yes Patient to Obtain Answers: Other Notes: [facility] Medications Transportation Arranged Answers: Other Notes: w/c with O2 arranged by [facility] rehab Transport will Pick (Date 02/11/2018 03:30 PM & Time) Faxed Final Orders Answers: Yes Notes: to [facility] Agency/Facility Transfer Answers: Yes Notes: to [facility] Report Printed & Faxed to Receiving Agency Discharge Comments Notes: 02/11/2018 Case Management Note Faxed final orders. RN to call report. Ellen arranged transport with 15:30 olive picker. Case Management d/c poc: [facility]. Date Signed: 02/11/2018 01:00 PM Electronically Signed By:Jany Alonso RN Intervention Information
== END 2018-02-11 15:44 | DRG 234 ==
LOC: FCATH 08:44 → F2W 16:39 → F2N 02-04 08:51 → F2W 02-06 10:20
PROVIDERS: ADMIT Internal Medicine Cardiovascular Disease; ATTEND Thoracic Surgery (Cardiothoracic Vascular Surgery)
PROC: B2111ZZ Fluoroscopy of Multiple Coronary Arteries using Low Osmolar Contrast (ICD-10-PCS; 2018-02-03)
PROC: 4A023N7 Measurement of Cardiac Sampling and Pressure, Left Heart, Percutaneous Approach (ICD-10-PCS; 2018-02-03)
PROC: 02L70CK Occlusion of Left Atrial Appendage with Extraluminal Device, Open Approach (ICD-10-PCS; principal; 2018-02-04 11:00)
PROC: 06BP4ZZ Excision of Right Saphenous Vein, Percutaneous Endoscopic Approach (ICD-10-PCS; principal; 2018-02-04 11:00)
PROC: 025S0ZZ Destruction of Right Pulmonary Vein, Open Approach (ICD-10-PCS; principal; 2018-02-04 11:00)
PROC: 025T0ZZ Destruction of Left Pulmonary Vein, Open Approach (ICD-10-PCS; principal; 2018-02-04 11:00)
PROC: 06BQ4ZZ Excision of Left Saphenous Vein, Percutaneous Endoscopic Approach (ICD-10-PCS; principal; 2018-02-04 11:00)
PROC: 5A1221Z Performance of Cardiac Output, Continuous (ICD-10-PCS; principal; 2018-02-04 11:00)
PROC: 02100Z9 Bypass Coronary Artery, One Artery from Left Internal Mammary, Open Approach (ICD-10-PCS; principal; 2018-02-04 11:00)
PROC: 021209W Bypass Coronary Artery, Three Arteries from Aorta with Autologous Venous Tissue, Open Approach (ICD-10-PCS; principal; 2018-02-04 11:00)
PROC: 0B9N3ZZ Drainage of Right Pleura, Percutaneous Approach (ICD-10-PCS; 2018-02-08)
PROC: 0W9B3ZZ Drainage of Left Pleural Cavity, Percutaneous Approach (ICD-10-PCS; 2018-02-08)
PROC: 30233N1 Transfusion of Nonautologous Red Blood Cells into Peripheral Vein, Percutaneous Approach (ICD-10-PCS; 2018-02-08)
DX: I25.110 Atherosclerotic heart disease of native coronary artery with unstable angina pectoris (principal); I48.0 Paroxysmal atrial fibrillation; I13.0 Hypertensive heart and chronic kidney disease with heart failure and stage 1 through stage 4 chronic kidney disease, or unspecified chronic kidney disease; I50.32 Chronic diastolic (congestive) heart failure; J91.8 Pleural effusion in other conditions classified elsewhere; N18.4 Chronic kidney disease, stage 4 (severe); D62 Acute posthemorrhagic anemia; E11.22 Type 2 diabetes mellitus with diabetic chronic kidney disease; I25.5 Ischemic cardiomyopathy; D69.59 Other secondary thrombocytopenia; G47.33 Obstructive sleep apnea (adult) (pediatric); E78.5 Hyperlipidemia, unspecified; E66.9 Obesity, unspecified; Z68.26 Body mass index [BMI] 26.0-26.9, adult; Z79.01 Long term (current) use of anticoagulants; Z79.4 Long term (current) use of insulin
CPT/HCPCS: 82435-PO; 82565-PO; 82947-PO; 83605-PO; 84132-PO; 84295-PO; 84520-PO; 85014-PO; 97116-GP; 97162-GP; 97166-GO; 97530-GP; 97535-GO; G8978-GP-CJ; G8979-GP-CI; G8987-GO-CK; G8988-GO-CI; J0153; J0282; J0690; J1265; J1644; J1815; J1940; J2001; J2150; J2250; J2260; J2270; J2370; J2405; J2440; J2704; J2710; J2720; J2930; J3010; J3475; P9016; P9021; P9041; Q9967

== ENCOUNTER → 2018-02-16 | Outpatient (CLI) | payer OTHER, MEDICAID | LOC: FIMAGING 09:44 | PROVIDERS: ATTEND Thoracic Surgery (Cardiothoracic Vascular Surgery) | DX: J90 Pleural effusion, not elsewhere classified (principal); Z95.1 Presence of aortocoronary bypass graft ==

== ENCOUNTER → 2018-02-16 | Outpatient (CLI) | payer OTHER, MEDICAID ==
[~2018-02-16] MED LIST changes: -ATROPINE SULFATE 1 MG/10 ML SYR IVP ONE; +LIDOCAINE 1% 300 MG/30 ML SDV ONE; -NS 1,000 ML IV ONE
== END ==
LOC: FIMAGING 12:46
PROVIDERS: ATTEND Thoracic Surgery (Cardiothoracic Vascular Surgery)
PROC: 0W9B3ZZ Drainage of Left Pleural Cavity, Percutaneous Approach (ICD-10-PCS; principal; 2018-02-16)
DX: J90 Pleural effusion, not elsewhere classified (principal); Z95.1 Presence of aortocoronary bypass graft

== ENCOUNTER → 2018-02-26 | Outpatient (CLI) | payer OTHER, MEDICAID | LOC: FIMAGING 10:30 | PROVIDERS: ATTEND Thoracic Surgery (Cardiothoracic Vascular Surgery) | PROC: 0W9B3ZZ Drainage of Left Pleural Cavity, Percutaneous Approach (ICD-10-PCS; principal; 2018-02-26) | DX: J90 Pleural effusion, not elsewhere classified (principal); R06.02 Shortness of breath; I51.7 Cardiomegaly; Z95.1 Presence of aortocoronary bypass graft ==

== ENCOUNTER → 2018-03-03 | Outpatient (CLI) | payer OTHER, MEDICAID | END | disposition home or self-care (01) | LOC: FIMAGING 10:06 | PROVIDERS: ATTEND Thoracic Surgery (Cardiothoracic Vascular Surgery) | DX: J90 Pleural effusion, not elsewhere classified (principal); R06.02 Shortness of breath; I51.7 Cardiomegaly; Z95.1 Presence of aortocoronary bypass graft ==

== ENCOUNTER → 2018-03-15 | Outpatient (CLI) | payer OTHER, MEDICAID | LOC: FIMAGING 14:24 | PROVIDERS: ATTEND Thoracic Surgery (Cardiothoracic Vascular Surgery) | DX: J90 Pleural effusion, not elsewhere classified (principal); Z95.1 Presence of aortocoronary bypass graft; I51.7 Cardiomegaly ==

== ENCOUNTER 2018-03-16 15:45 | Inpatient (IN) | payer OTHER, MEDICAID ==
--- NOTE | 2018-03-16 16:40 | EDPHY ---
H & P Time Seen by Provider: 03/16/18 16:30 HPI/ROS: HPI High heart rate at cardiac rehab. 82-year-old male by private vehicle with his son. This patient underwent a quadruple bypass on February [address] Flowers. He reports that for the last day or 2 he has felt more fatigued than usual. His son reports that his heart rate has been intermittently high at home. He went to his cardiac rehab appointment today and it was noted that his heart rate was high and was persistently elevated. He was then sent to the emergency department for further evaluation. His only complaint is feeling more fatigued. He is on Eliquis currently. He also takes metoprolol. ROS: Constitutional: No fever, no chills. As above. Eyes: No discharge. No changes in vision. ENT: No sore throat. No nasal congestion or rhinorrhea. Respiratory: No cough. No shortness of breath. Cardiac: No chest pain, no palpitations. Gastrointestinal: No abdominal pain, no vomiting, no diarrhea. Genitourinary: No hematuria. No dysuria or increased frequency with urination. Musculoskeletal: No back pain. No neck pain. No myalgias or arthralgias. Skin: No rashes. Neurological: No headache. No focal weakness or altered sensation. Past medical history: Atrial fibrillation, coronary artery disease. As above. His biztalk software developer is Dr. Reyes Marshall. Social history: He does not smoke. He is here with his son. No alcohol. Physical Exam: General Appearance: Alert, he is not in distress. This patient is responding to questions appropriately and in full sentences. This patient appears well- hydrated and well-nourished. Eyes: Pupils equal and round no pallor or injection. No lid edema, erythema or injection. Respiratory: There are no retractions, lungs are clear to auscultation anterior with good air movement bilaterally. Cardiovascular: Irregular, irregular tachycardia. No murmur. Midline sternotomy incision scar dry and intact. Gastrointestinal: Abdomen is soft and nontender, no masses, bowel sounds normal. No focal tenderness at McBurney's point. No Jacobsen sign. Neurological: Motor sensory function is grossly intact. Cranial nerves are normal. Gait is normal. Skin: Warm and dry, no rashes. Musculoskeletal: Neck is supple and nontender. Extremities are symmetrical. All joints range without pain or impingement. Psychiatric: No agitation. No depression. Database: EKG: EKG time is 4:38 p.m.; EKG shows a narrow complex supraventricular tachycardia with a ventricular rate of 145. Likely a flutter with a 2-1 av block. The GA, QRS, QT intervals are within normal limits. There are no ST-T wave changes indicative of ischemic or injury pattern. No evidence of right heart strain. Interpreted by me. Imaging: Chest x-ray AP portable; the cardiac mediastinal silhouette is unremarkable. Left-sided pleural effusion appear smaller from prior study March 15. No other acute cardiopulmonary disease process noted. Interpreted by me. Procedures: Emergency department course: Triage vital signs reviewed. Tachycardic at 1:35 a.m.. Mildly hypertensive. Vital signs are otherwise normal. IV was placed. He was placed on a monitor. He was started on IV normal saline with 250 cc to 500 cc to be given over the next hour. EKG obtained and reviewed by myself. 5:00 p.m., spoke with on-call biztalk software developer Dr. Reyes Marshall. He is very familiar with this patient. I discussed rate control. He agrees with Lopressor IV initially. The patient also has a worsening renal insufficiency and a left- sided pleural effusion. The patient is scheduled for thoracentesis tomorrow. Patient will be admitted to Dr. Marshall. Hospitalist service will be consulted for renal insufficiency. 6:20 p.m., the patient has been given 15 mg of IV Lopressor in 5 mg doses. His heart rate has come down to 103. However, rate increase shortly after this quickly. I discussed given the patient oral beta-blockers with Dr. Marshall. Dr. Silva would like to see the patient in the emergency department 1st. 7:00 p.m., the patient has been evaluated by Dr. Marshall. We did discussed cardioverting him but he feels it is premature to do this. We will start the patient on amiodarone. 150 mg IV will be given as a bolus followed by drip at 1 milligram/minute. The patient will be admitted to the PCU under the care of Dr. Marshall. 7:20 p.m., spoke with Dr. Adamson of the hospitalist service regarding this patient and his elevated an increasing creatinine. The hospitalist service will consult on management of this another noncardiac issues. The patient was admitted to the PCU in stable condition. Differential Diagnosis: The differential diagnosis on this patient includes but is not limited to a flutter with rapid ventricular response, atrial fibrillation, dehydration, renal insufficiency, pleural effusion. This represents a partial list of diagnoses considered. These considerations are based on history, physical exam , past history, reassessment and diagnostic testing. Smoking Status: Never smoked Constitutional: Initial Vital Signs Temperature (C) 36.7 C 03/16/18 16:01 Heart Rate 135 H 03/16/18 16:01 Respiratory Rate 18 03/16/18 16:01 Blood Pressure 140/100 H 03/16/18 16:01 O2 Sat (%) 97 03/16/18 16:01 O2 Delivery Mode Room Air O2 (L/minute) 1 Allergies/Adverse Reactions: No Known Allergies Allergy (Verified 07/31/17 12:03) Home Medications: Medication Instructions Recorded Atorvastatin Calcium [Lipitor 40 40 mg PO HS 01/28/18 mg (*)] Furosemide [Lasix 20 MG (*)] 60 mg PO DAILY 01/28/18 Metoprolol Tartrate [Lopressor 100 100 mg PO BID 01/28/18 mg (*)] Tamsulosin HCl [Flomax 0.4 MG (*)] 0.4 mg PO DAILY 01/29/18 Diclofenac Sodium 1% [Voltaren Gel 2 gm TP QID PRN 02/03/18 (*)] Acetaminophen [Tylenol 325mg (*)] 325 - 650 mg PO Q4HRS PRN tab 02/11/18 Aspirin [Aspirin 81mg (*)] 81 mg PO DAILY tab.chew 02/11/18 Hydrocodone/APAP 5/325 [Dimmitt 1 - 2 tab PO Q4HRS PRN tab 02/11/18 5/325 (*)] Apixaban [Eliquis] 2.5 mg PO BID 03/16/18 Insulin Glargine [Lantus Syringe] 15 units SC DAILY 03/16/18 Lisinopril [Zestril 10 mg (*)] 10 mg PO DAILY 03/16/18 amLODIPine BESYLATE [Norvasc 10 mg 10 mg PO DAILY 03/16/18 (*)] Medical Decision Making - Diagnostics Imaging Results: Imaging Impressions Chest X-Ray 03/16/18 16:31 Impression: No change since one day prior. - Data Points Laboratory Results: Laboratory Results 03/16/18 16:40 03/16/18 16:40 03/16/18 03/16/18 03/16/18 16:42 16:40 16:40 WBC RBC Hgb Hct MCV MCH MCHC RDW Plt Count MPV Neut % (Auto) Lymph % (Auto) Milam % (Auto) Eos % (Auto) Baso % (Auto) Nucleat RBC Rel Count Absolute Neuts (auto) Absolute Lymphs (auto) Absolute Monos (auto) Absolute Eos (auto) Absolute Basos (auto) Absolute Nucleated RBC Immature Gran % Immature Gran # PT 14.9 SEC SEC (12.0-15.0) INR 1.15 (0.83-1.16) APTT 36.5 SEC SEC (23.0-38.0) D-Dimer 1.21 ug/mLFEU H ug/mLFEU (0.00-0.50) Sodium 139 mEq/L mEq/L (135-145) Potassium 4.6 mEq/L mEq/L (3.5-5.2) Chloride 103 mEq/L mEq/L (97-110) Carbon Dioxide 23 mEq/l mEq/l (22-31) Anion Gap 13 mEq/L mEq/L (6-14) BUN 58 mg/dL H mg/dL (7-23) Creatinine 3.0 mg/dL H mg/dL (0.7-1.3) Estimated GFR 20 Glucose 101 mg/dL H mg/dL (70-100) Calcium 8.7 mg/dL mg/dL (8.5-10.4) POC Troponin I 0.08 ng/mL ng/mL (0.00-0.08) 03/16/18 16:40 WBC 12.58 10^3/uL H 10^3/uL (3.80-9.50) RBC 4.41 10^6/uL 10^6/uL (4.40-6.38) Hgb 12.5 g/dL L g/dL (13.7-17.5) Hct 39.0 % L % (40.0-51.0) MCV 88.4 fL fL (81.5-99.8) MCH 28.3 pg pg (27.9-34.1) MCHC 32.1 g/dL L g/dL (32.4-36.7) RDW 14.1 % % (11.5-15.2) Plt Count 238 10^3/uL 10^3/uL (150-400) MPV 10.6 fL fL (8.7-11.7) Neut % (Auto) 78.1 % H % (39.3-74.2) Lymph % (Auto) 11.7 % L % (15.0-45.0) Milam % (Auto) 8.2 % % (4.5-13.0) Eos % (Auto) 1.2 % % (0.6-7.6) Baso % (Auto) 0.4 % % (0.3-1.7) Nucleat RBC Rel Count 0.0 % % (0.0-0.2) Absolute Neuts (auto) 9.83 10^3/uL H 10^3/uL (1.70-6.50) Absolute Lymphs (auto) 1.47 10^3/uL 10^3/uL (1.00-3.00) Absolute Monos (auto) 1.03 10^3/uL H 10^3/uL (0.30-0.80) Absolute Eos (auto) 0.15 10^3/uL 10^3/uL (0.03-0.40) Absolute Basos (auto) 0.05 10^3/uL 10^3/uL (0.02-0.10) Absolute Nucleated RBC 0.00 10^3/uL 10^3/uL (0-0.01) Immature Gran % 0.4 % % (0.0-1.1) Immature Gran # 0.05 10^3/uL 10^3/uL (0.00-0.10) PT INR APTT D-Dimer Sodium Potassium Chloride Carbon Dioxide Anion Gap BUN Creatinine Estimated GFR Glucose Calcium POC Troponin I Medications Given: Amiodarone HCl (Amiodarone Hcl) 200 mls @ 33.333 mls/hr IV ONCE ONE Stop: 03/17/18 01:14 Last Admin: 03/16/18 19:46 Dose: 200 mls Discontinued Medications Amiodarone HCl (Amiodarone Hcl) 100 mls @ 600 mls/hr IV ONCE ONE Stop: 03/16/18 19:24 Last Admin: 03/16/18 19:35 Dose: 100 mls Metoprolol Tartrate (Lopressor Injection) 5 mg IVP EDNOW ONE Stop: 03/16/18 17:12 Last Admin: 03/16/18 17:15 Dose: 5 mg Metoprolol Tartrate (Lopressor Injection) 5 mg IVP ONCE ONE Stop: 03/16/18 17:39 Last Admin: 03/16/18 17:39 Dose: 5 mg Metoprolol Tartrate (Lopressor Injection) 5 mg IVP ONCE ONE Stop: 03/16/18 18:05 Last Admin: 03/16/18 18:07 Dose: 5 mg Point of Care Test Results: Chemistry 03/16/18 16:42 POC Troponin I 0.08 ng/mL ng/mL (0.00-0.08) Departure - Departure Disposition: [facility] Acute Clinical Impression: Supraventricular tachycardia, Renal insufficiency, Pleural effusion, left Condition: Fair
[2018-03-16 16:50] LABS: PLATELET COUNT 238 10^3/uL (150-400)
[2018-03-16] MEDS ORDERED: METOPROLOL TARTRATE 5 MG/5 ML INJ IVP ONE ×3 (17:11→18:04)
[2018-03-16 17:17] LABS: INR 1.15 (0.83-1.16); PROTIME(PATIENT) 14.9 SEC (12.0-15.0)
[2018-03-16] MEDS ORDERED: METOPROLOL TARTRATE 5 MG/5 ML INJ ONE (17:36)
--- NOTE | 2018-03-16 19:01 | PDHOSCONS ---
History and Physical - Chief Complaint consult for renal insufficiency, pleural effusion - History of Present Illness 82yo M with recent 4 vessel CABG, atrial fibrillation, CKD, chronic diastolic CHF presents from cardiac rehab with elevated HR. Underwent CABG about 1 month ago; additional had bilateral pulmonary vein isolation and DAKOTA closure. Post-op course was complicated by recurrent L>R pleural effusion, BI on CKD, cellulitis at vein harvesting site. Had two thoracenteses while hospitalized ( 800ml on left, 425ml on right) and an additional left sided thoracentesis with 820ml removed on 02/16. He was discharged to [facility] and was progressing appropriately. He was at orientation for cardiac rehab today when his HR was noted to be in the 130s and was instructed to come to the ED. He denies any palpitations, chest discomfort, shortness of breath, presyncope/syncope. He denies any pleuritic pain. Internal medicine has been consulted for help with management of his renal insufficiency, diabetes, and pleural effusion. Regarding his diabetes, he notes that he has been taking 15 units of lantus daily. His post-prandial blood sugars have been in the 200s; he does not check fasting sugars. He reports previously seeing a progressive assembler and fitter about 3-4 years ago. Recommended kidney biopsy at that time but patient refused. History Information - Allergies/Home Medication List Allergies/Adverse Reactions: No Known Allergies Allergy (Verified 07/31/17 12:03) Home Medications: Atorvastatin Calcium [Lipitor 40 mg (*)] 40 mg PO HS 01/28/18 [Last Taken ] Furosemide [Lasix 20 MG (*)] 60 mg PO DAILY 01/28/18 [Last Taken 03/16/18] Metoprolol Tartrate [Lopressor 100 mg (*)] 100 mg PO BID 01/28/18 [Last Taken 13:00] Tamsulosin HCl [Flomax 0.4 MG (*)] 0.4 mg PO DAILY 01/29/18 [Last Taken 03/16/18 ] Diclofenac Sodium 1% [Voltaren Gel (*)] 2 gm TP QID PRN 02/03/18 [Last Taken 06/17 11:00] Apixaban [Eliquis] 2.5 mg PO BID 03/16/18 [Last Taken 03/16/18 13:00] Insulin Glargine [Lantus Syringe] 15 units SC DAILY 03/16/18 [Last Taken ] Lisinopril [Zestril 10 mg (*)] 10 mg PO DAILY 03/16/18 [Last Taken 03/16/18] amLODIPine BESYLATE [Norvasc 10 mg (*)] 10 mg PO DAILY 03/16/18 [Last Taken ] I have personally reviewed and updated: family history, medical history, social history, surgical history - Past Medical History Additional medical history: CAD s/p CABG, type 2 diabetes, HTN, HLD, CKD stage 3 -4, atrial fibrillation, chronic diastolic CHF, 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 Originally from [place]. Review of Systems Review of Systems: ROS: 10pt was reviewed & negative except for what was stated in HPI & below Physical Exam Physical Exam: Temp Pulse Resp BP Pulse Ox 36.7 C 147 H 16 155/104 H 93 03/16/18 16:01 03/16/18 18:45 03/16/18 18:45 03/16/18 18:07 03/16/18 18:45 O2 (L/minute) 2 Constitutional: no apparent distress, appears nourished, not in pain Eyes: PERRL, anicteric sclera, EOMI Ears, Nose, Mouth, Throat: moist mucous membranes, hearing normal, ears appear normal, no oral mucosal ulcers Cardiovascular: systolic murmur, tachycardia, edema (trace in BLE) Respiratory: no respiratory distress, no rales or rhonchi, reduced air movement (left base), No expiratory wheeze Gastrointestinal: normoactive bowel sounds, soft, non-tender abdomen, no palpable masses Genitourinary: no bladder fullness, no bladder tenderness Skin: warm, other (sternotomy site healing appropriately) Musculoskeletal: full muscle strength, no muscle tenderness, normal joint ROM, no joint effusions Neurologic: AAOx3 Psychiatric: interacting appropriately, not anxious, not encephalopathic, thought process linear Lab Data & Imaging Review 03/16/18 16:40 03/16/18 16:40 WBC 12.58 10^3/uL (3.80-9.50) H 03/16/18 16:40 RBC 4.41 10^6/uL (4.40-6.38) 03/16/18 16:40 Hgb 12.5 g/dL (13.7-17.5) L 03/16/18 16:40 Hct 39.0 % (40.0-51.0) L 03/16/18 16:40 MCV 88.4 fL (81.5-99.8) 03/16/18 16:40 MCH 28.3 pg (27.9-34.1) 03/16/18 16:40 MCHC 32.1 g/dL (32.4-36.7) L 03/16/18 16:40 RDW 14.1 % (11.5-15.2) 03/16/18 16:40 Plt Count 238 10^3/uL (150-400) 03/16/18 16:40 MPV 10.6 fL (8.7-11.7) 03/16/18 16:40 Neut % (Auto) 78.1 % (39.3-74.2) H 03/16/18 16:40 Lymph % (Auto) 11.7 % (15.0-45.0) L 03/16/18 16:40 King % (Auto) 8.2 % (4.5-13.0) 03/16/18 16:40 Eos % (Auto) 1.2 % (0.6-7.6) 03/16/18 16:40 Baso % (Auto) 0.4 % (0.3-1.7) 03/16/18 16:40 Nucleat RBC Rel Count 0.0 % (0.0-0.2) 03/16/18 16:40 Absolute Neuts (auto) 9.83 10^3/uL (1.70-6.50) H 03/16/18 16:40 Absolute Lymphs (auto) 1.47 10^3/uL (1.00-3.00) 03/16/18 16:40 Absolute Monos (auto) 1.03 10^3/uL (0.30-0.80) H 03/16/18 16:40 Absolute Eos (auto) 0.15 10^3/uL (0.03-0.40) 03/16/18 16:40 Absolute Basos (auto) 0.05 10^3/uL (0.02-0.10) 03/16/18 16:40 Absolute Nucleated RBC 0.00 10^3/uL (0-0.01) 03/16/18 16:40 Immature Gran % 0.4 % (0.0-1.1) 03/16/18 16:40 Immature Gran # 0.05 10^3/uL (0.00-0.10) 03/16/18 16:40 PT 14.9 SEC (12.0-15.0) 03/16/18 16:40 INR 1.15 (0.83-1.16) 03/16/18 16:40 APTT 36.5 SEC (23.0-38.0) 03/16/18 16:40 D-Dimer 1.21 ug/mLFEU (0.00-0.50) H 03/16/18 16:40 Sodium 139 mEq/L (135-145) 03/16/18 16:40 Potassium 4.6 mEq/L (3.5-5.2) 03/16/18 16:40 Chloride 103 mEq/L (97-110) 03/16/18 16:40 Carbon Dioxide 23 mEq/l (22-31) 03/16/18 16:40 Anion Gap 13 mEq/L (6-14) 03/16/18 16:40 BUN 58 mg/dL (7-23) H 03/16/18 16:40 Creatinine 3.0 mg/dL (0.7-1.3) H 03/16/18 16:40 Estimated GFR 20 03/16/18 16:40 Glucose 101 mg/dL (70-100) H 03/16/18 16:40 Calcium 8.7 mg/dL (8.5-10.4) 03/16/18 16:40 POC Troponin I 0.08 ng/mL (0.00-0.08) 03/16/18 16:42 Visualized and Interpreted Chest x-ray results: Yes Visualized and Interpreted imaging results: Yes Interpretation: CXR: small-moderate sized left pleural effusion, tiny right pleural effusion, no focal infiltrate, sternotomy wires and DAKOTA device in place , cardiomegaly without signs of pulmonary edema Visualized and Interpreted EKG results: Yes EKG additional interpertation: ECG: narrow complex tachycardia, likely 2:1 atrial flutter, old inferior and anterior q waves, no new ischemic changes Assessment & Plan Assessment: 82yo M with CAD s/p recent 4 vessel CABG complicated by recurrent bilateral pleural effusions, atrial fibrillation, CKD, chronic diastolic CHF presents from cardiac rehab with elevated HR. Medicine has been consulted for assistance in managing CKD, diabetes, and pleural effusions. Plan: 1. BI on CKD: Meeting criteria for acute injury based on creatinine (3.0 from baseline around 2.5) but GFR not significantly changed from baseline. I suspect this is hemodynamic in nature related to poor perfusion from atrial arrhythmia. Etiology of his chronic disease is unclear. - Check urine studies, renal ultrasound - Defer fluid management (diuresis) to cardiology - Monitor daily, avoid nephrotoxins (contrast) as able - Would benefit from outpatient nephrology follow up 2. Bilateral pleural effusions: s/p thora x3. Suspect this related to recent cardiac surgery vs CHF in setting of CKD. Lower concern for infectious process. However, his pleural fluid has not been sent to the lab, as far as I can tell. Fortunately, he is not overtly symptomatic from this. - Recommend thoracentesis tomorrow for diagnostic purposes - Would send fluid cell count with differential, glucose, protein, LDH, gram stain/culture, and cytology - If transudative and not responding to aggressive diuresis, consider chest tube placement and chemical pleurodesis 3. Diabetes: Recent A1c 6.2%. - Continue home glargine 15 units daily. - Start SSI with regular BG checks 4. Narrow complex tachycardia: Likely atrial flutter with 2:1 conduction. - Management per primary cardiology team 5. CAD s/p 4v CABG: No angina. 6. Anemia: H/H appropriately improving after surgery. Thank you for this consult, we will continue to follow along.
[2018-03-16] MEDS ORDERED: AMIODARONE HCL 100 ML IV ONE (19:15)
[2018-03-16] MEDS ORDERED: AMIODARONE HCL 200 ML IV ONE (19:15)
[2018-03-16] MEDS ORDERED: D50W 25 GM/50 ML SYR IVP PRN (19:30)
[2018-03-16] MEDS ORDERED: ACETAMINOPHEN 325 MG TAB PO PRN (20:52)
[2018-03-16] MEDS ORDERED: ONDANSETRON 4 MG/2 ML VIAL IVP PRN (20:52)
[2018-03-16] MEDS ORDERED: ONDANSETRON DISINTEGRATING 4 MG TAB PO PRN (20:52)
--- NOTE | 2018-03-16 21:35 | GHP ---
DATE OF ADMISSION: 03/16/2018 INDICATION FOR ADMISSION: Atrial fibrillation with rapid ventricular response, coupled with symptoms of shortness of breath and fatigue. HISTORY OF PRESENT ILLNESS: The patient is a pleasant 82-year-old gentleman well known to my practic e at [facility]. He has a known history of coronary artery disease. He underwent urgent 4 vessel CABG with RAINES to LAD, saphenous vein graft to OM 1, OM 3, and PDA on February 04, 2018. At the time of his bypass surgery, he also underwent pulmonary vein isolation and left atrial clip of the left a trial appendage. His postoperative complication course has been complicated by recurrent bilateral p leural effusions. He has undergone 3 thoracenteses. Chest x-ray yesterday demonstrated progression of left effusion to a moderate left-sided effusion and he had been scheduled for an outpatient ultrasound-guided thoracentesis for tomorrow, Mar. Of note, I had seen the patient in my office yesterday. He had completed his physical therapy and wa s ready to start cardiac rehab. At the time of my evaluation in the office yesterday, he was in atri al fibrillation at 97 beats per minute. He had some complaints of fatigue, but had been gradually ma horace steady progress since his bypass surgery last month. His blood pressure had been well controlle d. Today, when he presented to cardiac rehab for initial evaluation, he was found to be in atrial fibril lation with rapid ventricular response and was referred to [facility] for further evaluation. In the ER, he was found to be what appeared to be more consistent with atrial flutter at approximately 147 beats per minute. He received IV Lopressor x3 which slowed his rate into the 120s briefly with rates and rhythm consisted more of atrial fibrillation with rapid moe tricular response and atrial flutter. I was asked to see him in the ER for further evaluation. At the time of my exam, he is resting comfo rtably. He was fatigued. He had some mild shortness of breath, but no complaints of chest pain, marcy st pressure, dizziness, lightheadedness, near syncope, or syncope. He has no complaints of PND, orth opnea, or lower extremity edema. Telemetry demonstrated continued atrial fibrillation with rates of approximately 137 beats per minute at the time of my examination. PAST MEDICAL HISTORY: Notable for paroxysmal atrial fibrillation, coronary artery disease status pos t CABG February 04, 2018, congestive heart failure with ischemic cardiomyopathy with LVEF of 47% on mo st recent echocardiogram, chronic renal insufficiency, and diabetes. MEDICATIONS: At time of admission include aspirin 81 mg daily, atorvastatin 40 mg daily, Eliquis 2.5 mg p.o. b.i.d., Lasix 60 mg daily, metoprolol tartrate 100 mg p.o. b.i.d. He is also on insulin, Co lace 100 mg p.o. b.i.d. p.r.n., hydrocodone/acetaminophen 5/325 mg 1-2 tabs q.4 hours p.r.n. pain, gl argine insulin 10 units subcu bedtime, probiotics, tamsulosin 0.4 mg once daily, diclofenac 1% topica l gel 2 g to affected area as needed for pain. ALLERGIES: None. FAMILY HISTORY: No family history of premature coronary disease. SOCIAL: Patient lives in [place]. He is cared for by his son. PHYSICAL EXAM: VITAL SIGNS: At the time of my examination, blood pressure was 155/104, heart rate o f 137 in atrial fibrillation, respiratory rate of 16, oxygen saturation 96% on 2 L. GENERAL: He is awake, alert, oriented, appropriate and responds to questions appropriately. He is fatigued and did fall asleep while I was examining him. NECK: There is no evidence of JVP or carotid bruits. RESPIR ATORY: He does have decreased breath sounds at the mid left lung field to lower lungs. Dullness to percussion from mid left lung field. Right lung had some mild coarse breath sounds at the bases. CA RDIAC: S1, S2. Irregularly irregular, rapid rate and rhythm. No murmurs, rubs, or gallops. His mi dline incision is healing well. No evidence of infection. EXTREMITIES: He does have trace bilatera l ankle edema. IMPRESSION: 1. Atrial fibrillation with rapid ventricular response. 2. Recurrent left pleural effusion with moderate left pleural effusion seen on repeat chest x-ray to day. PLAN: 1. Recommend initiating amiodarone drip with bolus. Recommend patient remain n.p.o. 2. If the patient remains in atrial fibrillation with rapid ventricular response tomorrow, we will p waldemar for cardioversion. 3. Patient is scheduled for ultrasound-guided thoracentesis at [facility] tomorrow m orning at 8 a.m. He should keep this appointment. 4. Will continue on current outpatient medications. 5. Of note, he has been compliant with Eliquis. He has been on Eliquis post surgery for over 4 week s at this time. He did undergo left atrial appendage ligation. With 4 weeks of anticoagulation, cou pled with left atrial appendage ligation, I do not see indication for KAUR prior to potential cardiove rsion or need for KAUR prior to antiarrhythmic therapy with amiodarone. /[id number]/MODL
[2018-03-16] MEDS: APIXABAN 2.5 MG TAB PO SCH (21:52)
[2018-03-16] MEDS: METOPROLOL TARTRATE 100 MG TAB PO SCH (21:52)
--- NOTE | 2018-03-16 23:18 | CPEKG ---
Test Reason : OPEN Blood Pressure : / mmHG Vent. Rate : 145 BPM Atrial Rate : 142 BPM P-R Int : 078 ms QRS Dur : 091 ms QT Int : 327 ms P-R-T Axes : 085 -45 152 degrees QTc Int : 508 ms probable atrial flutter Inferior infarct, old Anterior infarct, old Lateral leads are also involved Confirmed by Elizabet Montgomery ([id number]) on 03/16/2018 11:17:35 PM Referred By: Confirmed By:Elizabet Montgomery
[2018-03-17] MEDS ORDERED: AMIODARONE HCL 540 MG in D5W 300 ML IV ONE (01:30)
[2018-03-17 04:28] LABS: PLATELET COUNT 192 10^3/uL (150-400)
[2018-03-17] MEDS ORDERED: LIDOCAINE 1% 300 MG/30 ML SDV ONE (08:10)
[2018-03-17] MEDS ORDERED: OXYCODONE/APAP 5/325 TAB PO ONE (08:13)
[2018-03-17] MEDS: INSULIN LISPRO 100 UNIT/ML SC SCH ×2 (08:14→12:53)
--- NOTE | 2018-03-17 08:18 | PDCARPN ---
Cardiology Progress Note Assessment/Plan: Assessment: -Afib with RVR (PVI and DAKOTA ligation at time of CABG) -Pleural Effusion -CAD sp CABG Jan 2018 -ICM LVEF 47% -Chronic Renal Insufficiency Plan: -US Guided Thoracentesis of Left Lung this AM -Cardioversion today after thoracentesis -Continue Amiodarone gtt, will convert to PO after DCCV -No indication for KAUR in the setting of 4 weeks of anticoagulation withouit interruption and s/p DAKOTA ligation -Appreciate Hospitalist input on management of DM and CRI 03/17/18 08:14 03/17/18 08:20 Subjective: Reggie has done well overnight. remains in rate controlled Afib. He denies any new complaints. Vitals stable. Reviewed/Discussed With: family Objective: Vital Signs (8 Hrs) Temp Pulse Resp BP Pulse Ox 03/17/18 07:17 36.6 C 87 22 H 143/108 H 93 03/17/18 03:31 36.6 C 77 19 126/79 H 92 Intake/Output (24 Hrs) 03/16/18 03/17/18 03/18/18 05:59 05:59 05:59 Intake Total 320 Balance 320 Intake: Oral (ml) 200 IV Infused (ml) 120 Other: Weight 79.6 kg Number of Voids 2 Toilet 2 Result Diagrams: 03/17/18 04:05 03/17/18 04:05 - Physical Exam Cardiovascular: irregularly irregular Respiratory: other (decreased bs at LLL ) Gastrointestinal: normoactive bowel sounds Neurologic: AAOx3, CN II-XII grossly intact Psychiatric: cooperative, interactive ICD10 Worksheet Patient Problems: Problems Problem Status Onset Pleural effusion, left Acute Renal insufficiency Acute Supraventricular tachycardia Acute CKD (chronic kidney disease) Acute Chronic Disease Mgmt/Transitional Care Acute Diabetes Acute Ischemic cardiomyopathy Acute Paroxysmal atrial fibrillation Acute S/P CABG x 4 Acute S/P ablation of atrial fibrillation Acute
[2018-03-17] MEDS: METOPROLOL TARTRATE 100 MG TAB PO SCH (08:20)
[2018-03-17] MEDS ORDERED: ASPIRIN 81 MG CHEWABLE TAB PO SCH (09:00)
[2018-03-17] MEDS ORDERED: TAMSULOSIN HCL 0.4 MG CAP PO SCH (09:00)
[2018-03-17] MEDS ORDERED: ATORVASTATIN CALCIUM 40 MG TAB PO SCH (09:00)
[2018-03-17] MEDS ORDERED: INSULIN GLARGINE 100 UNITS/ML UNIT SC SCH (09:00)
[2018-03-17] MEDS ORDERED: FUROSEMIDE 80 MG TAB PO SCH (09:00)
--- NOTE | 2018-03-17 09:12 | HOSPPROG ---
Hospitalist Progress Note Assessment/Plan: 82yo M with CAD s/p recent 4 vessel CABG complicated by recurrent bilateral pleural effusions, atrial fibrillation, CKD, chronic diastolic CHF presents from cardiac rehab with elevated HR. Medicine has been consulted for assistance in managing CKD, diabetes, and pleural effusions. 1. BI on CKD: Improving with diuresis, near baseline. Renal US ok. - Diuresis per cardiology. Recommend outpatient nephrology follow up. 2. Diabetes: A1c 6.2%. Great BG control here. - Continue glargine 15u daily at discharge 3. Bilateral pleural effusions: L>R. S/p thoracentesis on left with 750ml removed today. Likely r/t recent cardiac surgery. - Fluid studies indicate exudative but I suspect this is likely transudative in setting of diuresis - Follow up finalized cultures and cytology as outpatient 4. Atrial fibrillation/flutter with RVR: Now s/p electrical cardioversion and in NSR. - PO amiodarone per cardiology 5. CAD s/p 4v CABG: Cardiac rehab after discharge. Ok to discharge from medicine stand point. Subjective: Feeling well today. Underwent cardioversion which was successful. Also underwent thoracentesis and breathing better. No other complaints. Objective: Vital Signs Temp Pulse Resp BP Pulse Ox 36.6 C 87 22 H 143/108 H 93 03/17/18 07:17 03/17/18 07:17 03/17/18 07:17 03/17/18 07:17 03/17/18 07:17 Laboratory Results 03/17/18 04:05 03/17/18 04:05 03/16/18 03/17/18 03/18/18 05:59 05:59 05:59 Intake Total 320 Balance 320 PT 14.9 SEC (12.0-15.0) 03/16/18 16:40 INR 1.15 (0.83-1.16) 03/16/18 16:40 - Physical Exam Constitutional: no apparent distress, appears nourished, not in pain Eyes: PERRL Ears, Nose, Mouth, Throat: moist mucous membranes, hearing normal, ears appear normal, no oral mucosal ulcers Cardiovascular: regular rate and rhythym, no murmur, rub, or gallop, No edema Respiratory: no respiratory distress, no rales or rhonchi, clear to auscultation , other (improved aeration left lung base) Gastrointestinal: normoactive bowel sounds, soft, non-tender abdomen, no palpable masses Genitourinary: no bladder fullness, no bladder tenderness, no renal bruits Skin: no rashes or abrasions, no fluctuance, no induration Musculoskeletal: full muscle strength, no muscle tenderness, normal joint ROM Neurologic: AAOx3, sensation intact bilaterally Psychiatric: interacting appropriately, not anxious, not encephalopathic, thought process linear ICD10 Worksheet Patient Problems: Problems Problem Status Onset Atrial fibrillation and flutter Acute Pleural effusion, left Acute Renal insufficiency Acute Supraventricular tachycardia Acute CKD (chronic kidney disease) Acute Chronic Disease Mgmt/Transitional Care Acute Diabetes Acute Ischemic cardiomyopathy Acute Paroxysmal atrial fibrillation Acute S/P CABG x 4 Acute S/P ablation of atrial fibrillation Acute
[2018-03-17] MEDS ORDERED: ATROPINE SULFATE 1 MG/10 ML SYR IVP ONE (09:23)
[2018-03-17] MEDS: APIXABAN 2.5 MG TAB PO SCH (10:47)
--- NOTE | 2018-03-17 10:52 | PDMN ---
Medical Necessity Medical necessity: [facility] [id number] Afib A-1day: 82 yo w/ recent 4 vessel CABG last month presents w/ afib w/ RVR and recurrent L pleural effusion (has undergone 3 thoracentesis post CABG) w/ additional s/sx SOB and fatigue. Cardiology consulted, Initiate amiodarone drip w/ bolus. Meets [facility] IP criteria for Afib w / hemodynamic instability and initiation of antiarrhythmic.
[2018-03-17] MEDS ORDERED: PROPOFOL 200 MG/20 ML VIAL ONE (11:21)
--- NOTE | 2018-03-17 11:28 | PDANEPAE ---
ANE History of Present Illness A flutter for CV ANE Past Medical History - Cardiovascular History Hx Hypertension: Yes Hx Arrhythmias: Yes Hx Chest Pain: Yes Hx Coronary Artery / Peripheral Vascular Disease: Yes - Pulmonary History Hx COPD: No Hx Asthma/Reactive Airway Disease: No Hx Recent Upper Respiratory Infection: No Hx Oxygen in Use at Home: No Hx Sleep Apnea: No - Endocrine History Hx Diabetes: Yes - Renal History Hx Renal Disorders: Yes Renal History Comment: CRI - Chronic Pain History Chronic Pain: No ANE Review of Systems Review of systems is: negative Review of Systems: - Exercise capacity Exercise capacity: <4 METS ANE Patient History - Allergies Allergies/Adverse Reactions: No Known Allergies Allergy (Verified 07/31/17 12:03) - Home Medications Home medications: home medication list seen and reviewed Home Medications: Atorvastatin Calcium [Lipitor 40 mg (*)] 40 mg PO HS 01/28/18 [Last Taken ] Furosemide [Lasix 20 MG (*)] 60 mg PO DAILY 01/28/18 [Last Taken 03/16/18] Metoprolol Tartrate [Lopressor 100 mg (*)] 100 mg PO BID 01/28/18 [Last Taken 13:00] Tamsulosin HCl [Flomax 0.4 MG (*)] 0.4 mg PO DAILY 01/29/18 [Last Taken 03/16/18 ] Diclofenac Sodium 1% [Voltaren Gel (*)] 2 gm TP QID PRN 02/03/18 [Last Taken 06/17 11:00] Apixaban [Eliquis] 2.5 mg PO BID 03/16/18 [Last Taken 03/16/18 13:00] Insulin Glargine [Lantus Syringe] 15 units SC DAILY 03/16/18 [Last Taken ] Lisinopril [Zestril 10 mg (*)] 10 mg PO DAILY 03/16/18 [Last Taken 03/16/18] amLODIPine BESYLATE [Norvasc 10 mg (*)] 10 mg PO DAILY 03/16/18 [Last Taken ] - Smoking Hx Smoking Status: Never smoked - Alcohol Use Alcohol Use: None ANE Labs/Vital Signs - Labs Result Diagrams: 03/17/18 04:05 03/17/18 04:05 - Vital Signs Blood Pressure: 143/108 Heart Rate: 87 Respiratory Rate: 22 O2 Sat (%): 93 Height: 175 cm Weight: 79.6 kg ANE Physical Exam - Airway Neck exam: FROM Mallampati Score: Class 2 Mouth exam: normal dental/mouth exam - Pulmonary Pulmonary: no respiratory distress - Cardiovascular Cardiovascular: regular rate and rhythym - ASA Status ASA Status: III ANE Anesthesia Plan Anesthesia Plan: GA with mask
--- NOTE | 2018-03-17 11:28 | POSTANESTH ---
Post Anesthetic Evaluation Cardiovascular Status: Normal, Stable Respiratory Status: Normal, Stable Level of Consciousness/Mental Status: Can Participate in Eval, Mildly Sleepy, Arousable Pain Control: Adequate, Prn Tx Ordered Nausea/Vomiting Control: Adequate, Prn Tx Ordered Complications Possibly Related to Anesthesia: None Noted
--- NOTE | 2018-03-17 12:37 | CPR ---
DATE OF PROCEDURE: 03/17/2018 PROCEDURE PERFORMED: Direct current cardioversion. INDICATION FOR PROCEDURE: Atrial fibrillation with rapid ventricular response, coupled with symptoms of shortness of breath and fatigue. BRIEF SUMMARY: The patient is a pleasant 82-year-old gentleman with a known history of paroxysmal at rial fibrillation, coronary artery disease, status post urgent 4-vessel CABG in early January 2018 Count includes the [facility]. He underwent intraoperative pulmonary vein isolation and left atrial a ppendage ligation. He was discharged home approximately February 11, 2018. He had been restarted on anticoagulation at time of discharge. He has completed over 4 weeks of Eliquis 2.5 mg p.o. b.i.d. w ithout interruption. In the setting of atrial fibrillation, coupled with compliance with Eliquis wit hout interruption over the last in the setting of left atrial appendage ligation, there is no indicat ion for KAUR prior to cardioversion. PROCEDURE: After informed consent was obtained for both cardioversion as well as anesthesia, patient was sedated with propofol. After appropriate level of sedation was achieved, the patient underwent a single shock of 200 joules of biphasic synchronized energy. Patient returned to normal sinus rhyth m with a rate of 55 beats per minute. He tolerated the procedure well. There were no postoperative complications. At the time of this dictation, he is recovering without complication. PLAN: 1. Will continue amiodarone drip. 2. Will change amiodarone to oral amiodarone therapy. 3. Will continue Eliquis 2.5 mg p.o. b.i.d. 4. Will continue all outpatient cardiac medications. 5. Patient will return to initiate with cardiac rehab on Tuesday, March 20, 2018. 6. Results of cardioversion have been discussed in detail with patient's son, who is involved in his care. /[id number]/MODL
[2018-03-17 14:47] VITALS: BP 159/86
--- NOTE | 2018-03-17 23:06 | CPEKG ---
Test Reason : OPEN Blood Pressure : / mmHG Vent. Rate : 053 BPM Atrial Rate : 053 BPM P-R Int : 236 ms QRS Dur : 101 ms QT Int : 498 ms P-R-T Axes : 033 -43 060 degrees QTc Int : 468 ms Sinus rhythm with first degree av block Inferior infarct, old Anterior infarct, old Confirmed by Hossein Woods ([id number]) on 03/17/2018 11:06:27 PM Referred By: Confirmed By:Hossein Woods
[2018-03-18] MEDS ORDERED: AMIODARONE HCL 200 MG TAB PO SCH (09:00)
== END 2018-03-17 17:50 | disposition home or self-care (01) | DRG 308 ==
LOC: F2W 20:07 → OBSVTOIN 21:01
PROVIDERS: ADMIT Internal Medicine Cardiovascular Disease; ATTEND Internal Medicine Cardiovascular Disease
PROC: 5A2204Z Restoration of Cardiac Rhythm, Single (ICD-10-PCS; principal; 2018-03-17)
PROC: 0W9B3ZX Drainage of Left Pleural Cavity, Percutaneous Approach, Diagnostic (ICD-10-PCS; 2018-03-17)
DX: I48.91 Unspecified atrial fibrillation (principal); I13.0 Hypertensive heart and chronic kidney disease with heart failure and stage 1 through stage 4 chronic kidney disease, or unspecified chronic kidney disease; I50.33 Acute on chronic diastolic (congestive) heart failure; N18.4 Chronic kidney disease, stage 4 (severe); J90 Pleural effusion, not elsewhere classified; N17.9 Acute kidney failure, unspecified; I25.10 Atherosclerotic heart disease of native coronary artery without angina pectoris; Z95.1 Presence of aortocoronary bypass graft; Z79.01 Long term (current) use of anticoagulants; E78.5 Hyperlipidemia, unspecified; E11.9 Type 2 diabetes mellitus without complications; D64.9 Anemia, unspecified
CPT/HCPCS: 84484-ER; 96365; J0282; J0461; J1815; J2704

== ENCOUNTER → 2018-03-24 | Outpatient (CLI) | payer OTHER, MEDICAID | LOC: BHFA 14:45 | PROVIDERS: ATTEND Internal Medicine Cardiovascular Disease | DX: I25.10 Atherosclerotic heart disease of native coronary artery without angina pectoris (principal); I48.0 Paroxysmal atrial fibrillation; J90 Pleural effusion, not elsewhere classified ==

== ENCOUNTER → 2018-04-07 | Outpatient (CLI) | payer OTHER, MEDICAID | LOC: FIMAGING 15:11 | PROVIDERS: ATTEND Internal Medicine Cardiovascular Disease | DX: J90 Pleural effusion, not elsewhere classified (principal) ==

== ENCOUNTER → 2018-05-19 | Outpatient (CLI) | payer OTHER, MEDICAID | LOC: FIMAGING 15:07 | PROVIDERS: ATTEND Internal Medicine Cardiovascular Disease | DX: J90 Pleural effusion, not elsewhere classified (principal); I25.10 Atherosclerotic heart disease of native coronary artery without angina pectoris ==